=== PATIENT | male | born 1945 | race Two or more races ===

== ENCOUNTER 2020-10-02 07:31 | Outpatient (REF) | payer OTHER, SELFPAY | END 2020-10-02 07:32 | disposition home or self-care (01) | LOC: HO.LAB 07:31 | PROVIDERS: Visit Provider Internal Medicine | DX: Z20.822 Contact with and (suspected) exposure to COVID-19 (principal) | CPT/HCPCS: 36415; C9803; U0003 ==

== ENCOUNTER 2024-04-15 15:40 | Outpatient (AMB) | payer OTHER, SELFPAY ==
--- NOTE | 2024-04-15 15:45 | HO.NEPHOV ---
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 He has history of ischemic stroke, pre diabetes and CKD stage 3. He has expressive aphasia post CVA. He has history of prostate cancer. He denies having coronary artery disease, congestive heart failure, carotid stenosis, renal artery stenosis or PND. He has no history of hypokalemia, uncontrolled thyroid disorders, hypercalcemia or obstructive sleep apnea. He was accompanied by his friend Stella. He was prescribed labetalol in the past and then later to carvedilol which is top due to dizziness and drowsiness. Currently is on amlodipine 10 mg along with lisinopril 40 mg and spironolactone 25 mg. He does not have any chest pain, shortness of breath, proximal nocturnal dyspnea, orthopnea, pedal edema, orthostatic symptoms, hematuria, flank pain, sinusitis, palpitation, syncope, urinary symptoms. He denies taking excessive sodium in the diet as well as nonsteroidal anti-inflammatories. He maintains good hydration. His recent serum creatinine has been 1.48 but had been 1.6 in the past. [facility] Medical History (Updated 04/15/24 @ 15:56 by Richard Vila MD) Prostate cancer Pre-diabetes Expressive aphasia Erectile dysfunction Chronic renal failure BPH (benign prostatic hyperplasia) Essential (primary) hypertension Acute ischemic stroke Family History Son Stroke Son Hypertension Social History (Updated 04/15/24 @ 15:52 by Susana Ingram MA) Alcohol intake: former Patient Tobacco Use Status: Never used Tobacco Review of Systems Const All systems reviewed & are unremarkable except as noted in HPI and below Physical Exam Vital Signs: Last Vital Signs Pulse 74 04/15/24 15:49 BP 122/82 04/15/24 15:49 Pulse Ox 95 04/15/24 15:49 Oxygen Delivery Method Room Air 04/15/24 15:49 BMI result Body Mass Index 25.4 Const General: comfortable and no acute distress Orientation/consciousness: patient oriented x3 HEENT Head: Yes normocephalic Mouth: Normal oral and palatal mucosa present Eyes EOM: EOMs intact bilaterally Neck Neck: Yes supple Resp Auscultation: clear to auscultation bilaterally Cardio Jugular venous distension: no JVD Rate: regular rate GI Palpation (GI): Soft to palpation Auscultation: normal bowel sounds General: Yes no CVA tenderness Back/Spine/Pelvis Back: no CVA tenderness Skin General skin exam: no rashes or lesions noted Neuro General: patient oriented x3 and moves all extremities Extrem General: Yes no pedal edema Results Reviewed Nephrology Results: No Data to Display Assessment & Plan Assessment & Plan (1) CKD stage 3a, GFR 45-59 ml/min: Code(s): N18.31 - Chronic kidney disease, stage 3a Category: Medical (2) Hypertension: Code(s): I10 - Essential (primary) hypertension Category: Medical Qualifiers: Hypertension type: renovascular hypertension Qualified Code(s): I15.0 - Renovascular hypertension Plan 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 I ordered 24 hour ambulatory blood pressure monitor as well as Doppler of his renal arteries along with further workup. His renal functions have been currently stable. He is on CHERYL-inhibitor and spironolactone. His urine output is good. He should avoid nonsteroidal anti-inflammatories and minimize sodium in the diet. He should maintain good hydration. If the 24 hour blood pressure monitor shows him to have uncontrolled hypertension I intend to switch his amlodipine to nifedipine 60 mg daily. He could continue his current medications for now. He is going to follow-up with me in a few weeks with all the data for continued care. Time spent retrieving all [facility] records, patient encounter and documentation 62 minutes. Further management is pending evolving data. Orders: Orders US renal BI Today I15.0 - Renovascular hypertension US renal doppler Today I15.0 - Renovascular hypertension Aldosterone Today I15.0 - Renovascular hypertension, N18.31 - Chronic kidney disease, stage 3a Metanephrines, Plasma Today I15.0 - Renovascular hypertension, N18.31 - Chronic kidney disease, stage 3a Vitamin D 25-OH Total Today I15.0 - Renovascular hypertension, N18.31 - Chronic kidney disease, stage 3a Creatinine Today I15.0 - Renovascular hypertension, N18.31 - Chronic kidney disease, stage 3a Calcium Today I15.0 - Renovascular hypertension, N18.31 - Chronic kidney disease, stage 3a Immunofixation Pnl, Serum Today I15.0 - Renovascular hypertension, N18.31 - Chronic kidney disease, stage 3a AMB 24 HR B/P Monitor PLACEMENT Today I15.0 - Renovascular hypertension Aldost/Renin Today I15.0 - Renovascular hypertension, N18.31 - Chronic kidney disease, stage 3a Renin Today I15.0 - Renovascular hypertension, N18.31 - Chronic kidney disease, stage 3a Cortisol Random Today I15.0 - Renovascular hypertension, N18.31 - Chronic kidney disease, stage 3a TSH reflex Free T4 Today I15.0 - Renovascular hypertension, N18.31 - Chronic kidney disease, stage 3a Parathyroid Hormone Intact Today I15.0 - Renovascular hypertension, N18.31 - Chronic kidney disease, stage 3a Blood Urea Nitrogen Today I15.0 - Renovascular hypertension, N18.31 - Chronic kidney disease, stage 3a Electrolytes Today I15.0 - Renovascular hypertension, N18.31 - Chronic kidney disease, stage 3a Protein Creatinine Ratio, Ur Today I15.0 - Renovascular hypertension, N18.31 - Chronic kidney disease, stage 3a Coding Level of Care Code New Pt Level 5 (31337) Diagnoses CKD stage 3a, GFR 45-59 ml/min N18.31 Renovascular hypertension I15.0 Hypertension type: renovascular hypertension
[2024-04-15 15:49] VITALS: BP 122/82; PULSE 74; O2SAT 95; BMI 25.4
== END 2024-04-15 16:19 | disposition home or self-care (01) ==
PROVIDERS: Visit Provider Internal Medicine Nephrology
DX: N18.31 Chronic kidney disease, stage 3a (principal); I15.0 Renovascular hypertension; I69.320 Aphasia following cerebral infarction
CPT/HCPCS: 99205

== ENCOUNTER → 2024-04-15 15:40 | Outpatient (BNVA) | payer OTHER, SELFPAY | PROVIDERS: Visit Provider Internal Medicine Nephrology | DX: I15.0 Renovascular hypertension (principal); N18.31 Chronic kidney disease, stage 3a | CPT/HCPCS: 99202 ==

== ENCOUNTER 2024-05-13 10:27 | Outpatient (REF) | payer OTHER, SELFPAY ==
[2024-05-13 12:13] LABS: Parathyroid Hormone Intact 109.3 pg/mL (8.7-77.1)
[2024-05-13 12:22] LABS: Anion Gap 11 (12-20); Blood Urea Nitrogen 27 mg/dL (9-16); Calcium 9.4 mg/dL (8.4-10.2); Carbon Dioxide 27 mmol/L (22-29); Chloride 107 mmol/L (96-108); Estimated Glomerular Filt Rate 40; Potassium 4.4 mmol/L (3.3-5.1); Sodium 141 mmol/L (135-145)
[2024-05-13 12:23] LABS: Creatinine Urine 120.92 mg/dL; Protein/Creatinine Ratio, Ur 0.15 (<0.2); Total Protein Urine Random 18 mg/dL (<12)
[2024-05-13 12:24] LABS: TSH reflex Free T4 0.43 uIU/mL (0.32-4.0); Vitamin D 25-OH Total 47.6 ng/mL (>30)
[2024-05-13 12:26] LABS: Cortisol Random 7.1 ug/dL
[2024-05-19 17:03] LABS: Renin 2.05 ng/mL/h (0.25-5.82)
[2024-05-20 21:48] LABS: IgA 133 mg/dL (70-320); IgG 1561 mg/dL (600-1540); IgM 43 mg/dL (50-300)
[2024-05-21 13:44] LABS: Metanephrine, Free 57 pg/mL (<=57); Normetanephrines, Free 87 pg/mL (<=148); Total Metanephrine, Free 144 pg/mL (<=205)
[2024-05-22 12:44] LABS: Aldosterone/Renin Ratio 5.1 Ratio (0.9-28.9); Plasma Renin Activity 2.34 ng/mL/h (0.25-5.82)
== END 2024-05-13 10:28 | disposition home or self-care (01) ==
LOC: HO.LAB 10:27
PROVIDERS: Visit Provider Internal Medicine Nephrology
DX: I15.0 Renovascular hypertension (principal); N18.31 Chronic kidney disease, stage 3a
CPT/HCPCS: 36415; 80051; 82088; 82306; 82310; 82533; 82565; 82570; 82784; 83835; 83970; 84156; 84244; 84443; 84520; 86334

== ENCOUNTER → 2024-05-19 10:25 | Outpatient (BNVA) | payer OTHER, SELFPAY | PROVIDERS: Visit Provider Internal Medicine Nephrology ==

== ENCOUNTER 2024-05-20 10:18 | Outpatient (AMB) | payer OTHER, SELFPAY ==
--- NOTE | 2024-05-20 10:46 | HO.NEPHOV ---
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 He has history of ischemic stroke, pre diabetes and CKD stage 3. He has expressive aphasia post CVA. He has history of prostate cancer. He denies having coronary artery disease, congestive heart failure, carotid stenosis, renal artery stenosis or PND. He has no history of hypokalemia, uncontrolled thyroid disorders, hypercalcemia or obstructive sleep apnea. He was accompanied by his friend Stella. He was prescribed labetalol in the past and then later to carvedilol which was stopped due to dizziness and drowsiness. Currently is on amlodipine 10 mg along with lisinopril 40 mg and spironolactone 25 mg. He does not have any chest pain, shortness of breath, proximal nocturnal dyspnea, orthopnea, pedal edema, orthostatic symptoms, hematuria, flank pain, sinusitis, palpitation, syncope, urinary symptoms. He denies taking excessive sodium in the diet as well as nonsteroidal anti-inflammatories. He maintains good hydration. His recent serum creatinine has been 1.48 but had been 1.6 in the past. He had a 24 hour BPM which showed 24 hour average of 134/85 mm of Hg. His day time average was 134/86 mm of Hg and night time average of 133/85 mm of Hg. [facility] Medical History (Updated 04/15/24 @ 15:56 by Richard Vila MD) Prostate cancer Pre-diabetes Expressive aphasia Erectile dysfunction Chronic renal failure BPH (benign prostatic hyperplasia) Essential (primary) hypertension Acute ischemic stroke Family History Son Stroke Son Hypertension Social History Alcohol intake: former Patient Tobacco Use Status: Never used Tobacco Review of Systems Const All systems reviewed & are unremarkable except as noted in HPI and below Physical Exam Vital Signs: Last Vital Signs Pulse 66 05/20/24 10:48 BP 138/80 05/20/24 10:48 Pulse Ox 97 05/20/24 10:48 Oxygen Delivery Method Room Air 05/20/24 10:48 BMI result Body Mass Index 25.5 Const General: comfortable and no acute distress Orientation/consciousness: patient oriented x3 HEENT Head: Yes normocephalic Mouth: Normal oral and palatal mucosa present Eyes EOM: EOMs intact bilaterally Neck Neck: Yes supple Resp Auscultation: clear to auscultation bilaterally Cardio Jugular venous distension: no JVD Rate: regular rate GI Palpation (GI): Soft to palpation Auscultation: normal bowel sounds General: Yes no CVA tenderness Back/Spine/Pelvis Back: no CVA tenderness Skin General skin exam: no rashes or lesions noted Neuro General: patient oriented x3 and moves all extremities Extrem General: Yes no pedal edema Results Reviewed Nephrology Results: Sodium 141 mmol/L (135-145) 05/13/24 Potassium 4.4 mmol/L (3.3-5.1) 05/13/24 Chloride 107 mmol/L (96-108) 05/13/24 Carbon Dioxide 27 mmol/L (22-29) 05/13/24 BUN 27 mg/dL (9-16) H 05/13/24 Creatinine 1.69 mg/dL (0.5-1.4) H 05/13/24 Calcium 9.4 mg/dL (8.4-10.2) 05/13/24 PTH Intact 109.3 pg/mL (8.7-77.1) H 05/13/24 Urine Creatinine 120.92 mg/dL 05/13/24 Protein/Creatinin Ratio 0.15 (<0.2) 05/13/24 Assessment & Plan Assessment & Plan (1) CKD stage 3a, GFR 45-59 ml/min: Code(s): N18.31 - Chronic kidney disease, stage 3a Category: Medical (2) Hypertension: Code(s): I10 - Essential (primary) hypertension Category: Medical Qualifiers: Hypertension type: renovascular hypertension Qualified Code(s): I15.0 - Renovascular hypertension Plan 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 24 hour ambulatory blood pressure showed He had a 24 hour BPM which showed 24 hour average of 134/85 mm of Hg. His day time average was 134/86 mm of Hg and night time average of 133/85 mm of Hg. HIs Doppler of his renal arteries are going to be done in a week. His renal functions have been currently stable. He is on CHERYL-inhibitor and spironolactone. His urine output is good. He should avoid nonsteroidal anti-inflammatories and minimize sodium in the diet. He should maintain good hydration. I discontinued his amlodipine and started him on nifedipine 30 mg daily. He could continue rest of his current medications for now. He is going to follow-up with me in a few weeks with all the data for continued care.Further management is pending evolving data Medications: New nifedipine ER 30 mg PO DAILY 30 tabs 6RF Coding Level of Care Code Est Pt Level 4 (81132) Diagnoses CKD stage 3a, GFR 45-59 ml/min N18.31 Renovascular hypertension I15.0 Hypertension type: renovascular hypertension
[2024-05-20 10:48] VITALS: BP 138/80; PULSE 66; O2SAT 97; BMI 25.5
== END 2024-05-20 11:12 | disposition home or self-care (01) ==
PROVIDERS: Visit Provider Internal Medicine Nephrology
DX: N18.31 Chronic kidney disease, stage 3a (principal); I15.0 Renovascular hypertension; I69.320 Aphasia following cerebral infarction; R03.0 Elevated blood-pressure reading, without diagnosis of hypertension
CPT/HCPCS: 93790; 99214

== ENCOUNTER → 2024-05-20 10:18 | Outpatient (BNVA) | payer OTHER, SELFPAY | PROVIDERS: Visit Provider Internal Medicine Nephrology | DX: I15.0 Renovascular hypertension (principal); N18.31 Chronic kidney disease, stage 3a; Z86.73 Personal history of transient ischemic attack (TIA), and cerebral infarction without residual deficits | CPT/HCPCS: 99212 ==

== ENCOUNTER 2024-05-24 08:18 | Outpatient (REF) | payer OTHER, SELFPAY ==
--- NOTE | ~2024-05-24 | US_ITS ---
EXAMINATION: RENAL ARTERY DOPPLER ULTRASOUND CLINICAL INFORMATION: Hypertension COMPARISON: None TECHNIQUE: Renal ultrasound. Doppler ultrasound (spectral analysis and color Doppler) of the renal arteries and aorta were performed. FINDINGS: The right kidney measures 9.1 x 5.0 x 4.2 cm in sagittal, AP and transverse dimensions. The left kidney measures 9.9 x 4.7 x 3.8 cm in sagittal, AP and transverse dimensions. The kidneys show no solid masses or hydronephrosis. The corticomedullary differentiation is normal. There is an anechoic simple cyst in the upper pole of the right kidney measuring 1.1 x 1.3 x 1.1 cm. There are 3 anechoic simple cyst within the left kidney, largest within the mid pole measuring 2.0 x 1.9 x 1.8 cm. No follow-up indicated. Punctate 2 mm echogenic stone in the upper pole collecting system of the left kidney RENAL ARTERY VELOCITIES: Right: Proximally: 132 cm/s. Mid: 63.6 cm/s. Distal: 29.6 cm/s. Left: Proximally: 69.7 cm/s. Mid: 99.5 cm/s. Distally: 79.1 cm/s. SEGMENTAL RESISTIVE INDICES: Right: Upper: 0.7 Mid: 0.66 Lower: 0.66 Left: Upper: 0.75 Mid: 0.61 Lower: 0.77 Mid aortic velocity: 66.6 cm/s. Renal Aortic Ratio: Right: 1.98 Left: 1.49 US/US renal doppler IMPRESSION: 1. Bilateral renal cysts. Left nephrolithiasis 2. There is no evidence of renal artery stenosis. Criteria: NORMAL: Renal artery peak systolic velocities < 180 cm/s. Renal aortic ratio < 3.5 Normal renal size. < 60% STENOSIS: Renal artery peak systolic velocities > 180 cm/s. Renal aortic ratio < 3.5 Renal size <2 cm difference between sides. > 60% STENOSIS Renal artery peak systolic velocities > 180 cm/s. Renal aortic ratio > 3.5 Renal size >2 cm difference between sides. Aortic PSV > 140 cm/s with normal renal artery PSV made over estimate severity. Aortic PSV > 100 cm/s with normal renal artery PSV may underestimate severity. Electronically signed by: Osei Franco MD 05/27/2024 09:42 AM EDT RP
== END 2024-05-24 08:19 | disposition home or self-care (01) ==
LOC: HO.US 08:18
PROVIDERS: Visit Provider Internal Medicine Nephrology
DX: I15.0 Renovascular hypertension (principal)
CPT/HCPCS: 76775; 93975

== ENCOUNTER 2024-06-22 10:09 | Outpatient (AMB) | payer OTHER, SELFPAY ==
--- NOTE | 2024-06-22 10:54 | HO.NEPHOV_ITS ---
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 He has history of ischemic stroke, pre diabetes and CKD stage 3. He has expressive aphasia post CVA. He has history of prostate cancer. He denies having coronary artery disease, congestive heart failure, carotid stenosis, renal artery stenosis or PND. He has no history of hypokalemia, uncontrolled thyroid disorders, hypercalcemia or obstructive sleep apnea. He was accompanied by his friend Stella. He was prescribed labetalol in the past and then later to carvedilol which was stopped due to dizziness and drowsiness. Currently is on amlodipine 10 mg along with lisinopril 40 mg and spironolactone 25 mg. He does not have any chest pain, shortness of breath, proximal nocturnal dyspnea, orthopnea, pedal edema, orthostatic symptoms, hematuria, flank pain, sinusitis, palpitation, syncope, urinary symptoms. He denies taking excessive sodium in the diet as well as nonsteroidal anti-inflammatories. He maintains good hydration. His recent serum creatinine has been 1.48 but had been 1.6 in the past. He had a 24 hour BPM which showed 24 hour average of 134/85 mm of Hg. His day time average was 134/86 mm of Hg and night time average of 133/85 mm of Hg [facility] Medical History (Updated 06/22/24 @ 11:10 by Richard Vila MD) Prostate cancer Pre-diabetes Expressive aphasia Erectile dysfunction Chronic renal failure BPH (benign prostatic hyperplasia) Essential (primary) hypertension Acute ischemic stroke Family History Son Stroke Son Hypertension Social History Alcohol intake: former Patient Tobacco Use Status: Never used Tobacco Review of Systems Const All systems reviewed & are unremarkable except as noted in HPI and below Physical Exam Vital Signs: Last Vital Signs Pulse 66 06/22/24 10:56 BP 132/80 06/22/24 10:56 Pulse Ox 97 06/22/24 10:56 Oxygen Delivery Method Room Air 06/22/24 10:56 BMI result Body Mass Index 25.0 Const General: comfortable and no acute distress Orientation/consciousness: patient oriented x3 HEENT Head: Yes normocephalic Mouth: Normal oral and palatal mucosa present Eyes EOM: EOMs intact bilaterally Neck Neck: Yes supple Resp Auscultation: clear to auscultation bilaterally Cardio Jugular venous distension: no JVD Rate: regular rate GI Palpation (GI): Soft to palpation Auscultation: normal bowel sounds General: Yes no CVA tenderness Back/Spine/Pelvis Back: no CVA tenderness Skin General skin exam: no rashes or lesions noted Neuro General: patient oriented x3 and moves all extremities Extrem General: Yes no pedal edema Results Reviewed Nephrology Results: Sodium 141 mmol/L (135-145) 05/13/24 Potassium 4.4 mmol/L (3.3-5.1) 05/13/24 Chloride 107 mmol/L (96-108) 05/13/24 Carbon Dioxide 27 mmol/L (22-29) 05/13/24 BUN 27 mg/dL (9-16) H 05/13/24 Creatinine 1.69 mg/dL (0.5-1.4) H 05/13/24 Calcium 9.4 mg/dL (8.4-10.2) 05/13/24 PTH Intact 109.3 pg/mL (8.7-77.1) H 05/13/24 Urine Creatinine 120.92 mg/dL 05/13/24 Protein/Creatinin Ratio 0.15 (<0.2) 05/13/24 Renal US 05/24/24 Assessment & Plan Assessment & Plan (1) CKD stage 3a, GFR 45-59 ml/min: Code(s): N18.31 - Chronic kidney disease, stage 3a Category: Medical (2) Hypertension: Code(s): I10 - Essential (primary) hypertension Category: Medical Qualifiers: Hypertension type: renovascular hypertension Qualified Code(s): I15.0 - Renovascular hypertension (3) Renal calculi: Code(s): N20.0 - Calculus of kidney Category: Medical (4) Renal cyst: Code(s): N28.1 - Cyst of kidney, acquired Category: Medical Plan 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 24 hour ambulatory blood pressure showed BPM which showed 24 hour average of 134/85 mm of Hg. His day time average was 134/86 mm of Hg and night time average of 133/85 mm of Hg. HIs Doppler of his renal arteries are going to be done in a week. His renal functions have been currently stable. He is on CHERYL- inhibitor and spironolactone. His urine output is good. He should avoid nonst eroidal anti-inflammatories and minimize sodium in the diet. He should maintain good hydration. His renal USS and Doppler was reviewed. He could continue rest of his current medications for now. F/U given Orders: Orders Blood Urea Nitrogen 6 Months I15.0 - Renovascular hypertension, N18.31 - Chronic kidney disease, stage 3a, N20.0 - Calculus of kidney, N28.1 - Cyst of kidney, acquired Electrolytes 6 Months I15.0 - Renovascular hypertension, N18.31 - Chronic k idney disease, stage 3a, N20.0 - Calculus of kidney, N28.1 - Cyst of kidney, acquired Creatinine 6 Months I15.0 - Renovascular hypertension, N18.31 - Chronic kidney disease, stage 3a, N20.0 - Calculus of kidney, N28.1 - Cyst of kidney, acquired Coding Level of Care Code Est Pt Level 4 (00091) Diagnoses CKD stage 3a, GFR 45-59 ml/min N18.31 Renovascular hypertension I15.0 Hypertension type: renovascular hypertension Renal calculi N20.0 Renal cyst N28.1
[2024-06-22 10:56] VITALS: BP 132/80; PULSE 66; O2SAT 97; BMI 25.0
== END 2024-06-22 11:17 | disposition home or self-care (01) ==
PROVIDERS: Visit Provider Internal Medicine Nephrology
DX: N18.31 Chronic kidney disease, stage 3a (principal); I15.0 Renovascular hypertension; N20.0 Calculus of kidney; N28.1 Cyst of kidney, acquired
CPT/HCPCS: 99214

== ENCOUNTER → 2024-06-22 10:09 | Outpatient (BNVA) | payer OTHER, SELFPAY | PROVIDERS: Visit Provider Internal Medicine Nephrology | DX: N18.31 Chronic kidney disease, stage 3a (principal); N20.0 Calculus of kidney; N28.1 Cyst of kidney, acquired; I15.0 Renovascular hypertension | CPT/HCPCS: 99212 ==

== ENCOUNTER 2024-12-21 10:28 | Outpatient (AMB) | payer OTHER, SELFPAY ==
--- NOTE | 2024-12-21 10:54 | HO.NEPHOV_ITS ---
Vital Signs 12/21/24 10:58 Height 5 ft 9 in Weight 174 lb 4 oz BMI 25.7 BP 150/90 H Blood Pressure Location Lt brachial Position Sitting Pulse 63 Pulse Source Pulse Oximeter Pulse Oximetry (%) 94 Oxygen Delivery Method Room Air Intake Visit Reasons: 6 mo - Follow up-Conf Mill Dresser Required: No Accompanied by: Other Relationship Allergies No Known Allergies Allergy (Verified 12/21/24 10:57) HPI Comments Details: Ignacio was seen in follow up for labile hypertension and chronic kidney disease. He has history of ischemic stroke, pre diabetes and CKD stage 3. He has expressive aphasia post CVA. He has history of prostate cancer. He denies having coronary artery disease, congestive heart failure, carotid stenosis, renal artery stenosis or PND. He has no history of hypokalemia, uncontrolled thyroid disorders, hypercalcemia or obstructive sleep apnea. He was accompanied by his friend Stella. He was prescribed labetalol in the past and then later to carvedilol which was stopped due to dizziness and drowsiness. Currently is on amlodipine 10 mg along with lisinopril 40 mg and spironolactone 25 mg. He does not have any chest pain, shortness of breath, proximal nocturnal dyspnea, orthopnea, pedal edema, orthostatic symptoms, hematuria, flank pain, sinusitis, palpitation, syncope, urinary symptoms. He denies taking excessive sodium in the diet as well as nonsteroidal anti-inflammatories. He maintains good hydration. His recent serum creatinine has been 1.48 but had been 1.6 in the past. He had a 24 hour BPM which showed 24 hour average of 134/85 mm of Hg. His day time average was 134/86 mm of Hg and night time average of 133/85 mm of Hg. He has not been taking Nifedipine. [facility] Medical History (Updated 06/22/24 @ 11:10 by Richard Vila MD) Prostate cancer Pre-diabetes Expressive aphasia Erectile dysfunction Chronic renal failure BPH (benign prostatic hyperplasia) Essential (primary) hypertension Acute ischemic stroke Family History Son Stroke Son Hypertension Social History Alcohol intake: former Patient Tobacco Use Status: Never used Tobacco Review of Systems Const All systems reviewed & are unremarkable except as noted in HPI and below Physical Exam Vital Signs: Last Vital Signs Pulse 63 12/21/24 10:58 BP 150/90 H 12/21/24 10:58 Pulse Ox 94 12/21/24 10:58 Oxygen Delivery Method Room Air 12/21/24 10:58 BMI result Body Mass Index 25.7 Const General: comfortable and no acute distress Orientation/consciousness: patient oriented x3 HEENT Head: Yes normocephalic Mouth: Normal oral and palatal mucosa present Eyes EOM: EOMs intact bilaterally Neck Neck: Yes supple Resp Auscultation: clear to auscultation bilaterally Cardio Jugular venous distension: no JVD Rate: regular rate GI Palpation (GI): Soft to palpation Auscultation: normal bowel sounds General: Yes no CVA tenderness Back/Spine/Pelvis Back: no CVA tenderness Skin General skin exam: no rashes or lesions noted Neuro General: patient oriented x3 and moves all extremities Extrem General: Yes no pedal edema Results Reviewed Nephrology Results: Sodium 141 mmol/L (135-145) 05/13/24 Potassium 4.4 mmol/L (3.3-5.1) 05/13/24 Chloride 107 mmol/L (96-108) 05/13/24 Carbon Dioxide 27 mmol/L (22-29) 05/13/24 BUN 27 mg/dL (9-16) H 05/13/24 Creatinine 1.69 mg/dL (0.5-1.4) H 05/13/24 Calcium 9.4 mg/dL (8.4-10.2) 05/13/24 PTH Intact 109.3 pg/mL (8.7-77.1) H 05/13/24 Urine Creatinine 120.92 mg/dL 05/13/24 Protein/Creatinin Ratio 0.15 (<0.2) 05/13/24 Renal US 05/24/24 Assessment & Plan Assessment & Plan (1) Renal cyst: Code(s): N28.1 - Cyst of kidney, acquired Category: Medical (2) Renal calculi: Code(s): N20.0 - Calculus of kidney Category: Medical (3) Hypertension: Code(s): I10 - Essential (primary) hypertension Category: Medical Qualifiers: Hypertension type: renovascular hypertension Qualified Code(s): I15.0 - Renovascular hypertension (4) CKD stage 3a, GFR 45-59 ml/min: Code(s): N18.31 - Chronic kidney disease, stage 3a Category: Medical Plan 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 24 hour ambulatory blood pressure showed BPM which showed 24 hour average of 134/85 mm of Hg. His day time average was 134/86 mm of Hg and night time average of 133/85 mm of Hg. His Doppler of his renal arteries did not show any JORGE L. He has B/L renal cysts His renal functions had currently stable. He is on CHERYL-inhibitor and spironolactone. He is not taking Nifedipine. So I started him on Amlodipine 10 mg daily. His urine output is good. He should avoid nonsteroidal anti-inflammatories and minimize sodium in the diet. He should maintain good hydration.He could continue rest of his current medications for now. F/U given Medications: New amlodipine 10 mg PO DAILY 30 tabs 3RF Discontinued nifedipine ER Discontinued Reason: Doctor's Order 30 mg PO DAILY 30 tabs 6RF Coding Level of Care Code Est Pt Level 4 (91744) Diagnoses Renal cyst N28.1 Renal calculi N20.0 Renovascular hypertension I15.0 Hypertension type: renovascular hypertension CKD stage 3a, GFR 45-59 ml/min N18.31
[2024-12-21 10:58] VITALS: BP 150/90; PULSE 63; O2SAT 94; BMI 25.7
--- OUTSIDE RECORDS SUMMARY | 2024-12-21 12:32 | XMS_ITS | Encounter Summary ---
Author Organization [facility] Address [address] [place] [address] Phone Care Team Providers Care Inside Trucker Name Role Phone Tae Ward MD Primary Care Provider Encounter Details Date Type Department Care Team (Late st Contact Info) Description 03/14/2022 Documentation Only [facility] [place], [address] [place] [address] [place], [place] [address] [place] [address] Social History Tobacco Use Types Packs/Day Years Used Date Smoking Tobacco: Never Alcohol Use Standard Drinks/Week Comments No 0 (1 standard drink = 0.6 oz pur e alcohol) Sex and Gender Information Value Date Recorded Sex Assigned at Not on file Legal Sex Male 5:03 PM EST Gender Identity Not on file Sexual Orientation Not on file documented as of this encounter Plan of Treatment Not on file documented as of this encounter Visit Diagnoses Not on filedocumented in this encounter Care Teams Inside Trucker Relationship Specialty Start Date End Date Tae Ward MD [facility] [address] [place], [place] PCP - General Internal Medicine 03/14/22 documented as of this encounter
--- OUTSIDE RECORDS SUMMARY | 2024-12-21 12:32 | XMS_ITS | Data Portability ---
Author Organization [employer] Address [address] [place] [address] Care Team Providers Care Energy Management Specialist Name Role Phone [facility] Referring Provider [phone] Assessment Encounter Date Assessment Date Assessment LastModified by Organization Details LastModified Time 07/21/2023 07/21/2023 As noted, we were called to see this patient regarding concerns of tachyarrhythmia . Evaluation in the field was performed by my childhood teacher colleague, as noted above, I provided real-time direction and supervision for this visit. The evaluation revealed the patient had stable vitals, no symptoms, and a reassuring exam. EKG showed sinus rhythm with some PVCs. Impression: normal sinus rhythm Plan: follow up with PCP Disposition: We discussed the diagnostic uncertainty of home visits and the risk associated with this. In this case, the patient and I felt this to be an acceptable and reasonable amount of risk given the benefit of avoiding an ED visit. We discussed the need to seek care urgently/emerge ntly in the setting of any new or worsening serious symptoms, particularly palpitations, dizziness, chest pain lswamy Not available 07/21/2023 17:54:51 Plan of Treatment Reminders Order Date Submit Date Provider Last Modified By Organization Details Last Modified Time Details Appointments None record ed. Lab None record ed. Referral None record ed. Procedures None record ed. Surgeries None record ed. Imaging None record ed. Medication Orders None record ed. Patient TargetsNo targets recorded. Patient InstructionsNo instructions recorded. Reason for Referral None Reported. Medical Equipment None Reported. Medications Name Sig Start Date Stop Date Status Note LastModified by Organization Details LastModified Time atorvastatin 80 mg tablet TAKE 1 TABLET BY MOUTH DAILY active Not Available Not Available No t Available lisinopril 20 mg tablet TAKE 1 TABLET BY MOUTH DAILY active Not Available Not Available No t Available amlodipine 10 mg tablet TAKE 1 TABLET BY MOUTH DAILY active Not Available Not Available No t Available loratadine 10 mg tablet TAKE 1 TABLET BY MOUTH DAILY active Not Available Not Available No t Available ezetimibe 10 mg tablet TAKE 1 TABLET BY MOUTH DAILY active Not Available Not Available No t Available Vitals Date Recorded Respiratory rate Body temperature Heart rate Oxygen saturation Oxygen saturation in Arterial blood by Pulse oximetry Systolic blood pressure Diastolic blood pressure Provider Name and Address Organization Details Last Updated DateTime 3 16 /min 97.6 [degF] 72 /min 98 % 98 % 155 mm[Hg] 89 mm[Hg] Not Available [facility] - production 3 17:40:01 Social History None recorded. Functional Status None recorded. Mental Status None recorded. Family History Nothing Reported. Medical History No medical history recorded. Past Encounters Encounter ID Performer Location Encounter Start Date Encounter Closed Date Diagnosis/Indication Diagnosis SNOMED-CT Code Diagnosis ICD10 Code Diagnosis Note [id number] MELISSA PAL MD [facility] - [facility] [address] [place] [phone] 07/21/2023 17:39:46 07/22/2023 11:19:25 Palpitations 60465809 R00.2 Health Concerns Section Related Observation LastModified by Organization Detai ls LastModified Time None Recorded Concern Status LastModified by Organization Details LastModified Time None Recorded Advance Directives Directive None Recorded Payers Encounter Date Sequence Insurance Name Policy Number Policy Barboza Covered Member ID Barboza Member ID Guarantor Name 07/21/2023 1 [facility] - DOS ON OR AFTER 2022 - DUAL ELIGIBLE - SNF OPTIONS AND ONE CARE (MEDICARE REPLACEMENT/ADV ANTAGE - HMO) Ignacio Dixon [id number] Ignaico Dixon Notes Date Note Type Note Provider Name and Address Organization Details Recorded Time 07/21/2023 text/html HPI: Member seen for a nurse assessment. Member found to have an irregular heart rate ranging from 62-133, denies any other cardiac symptoms. Denies chest pain, SOB, dizziness, or palpitations. The member's BP was 138/70, temp 97.3, RR 18, and O2 sat of 98%. The member has no known cardiac arrhythmias. The member has past medical hx of a CVA, prediabetes, and CKD stage 3. The member reports having the Flu last week but unable to confirm the diagnosis. The member refused to be seen for treatment this afternoon but agreed to a visit after this RN spoke with the PCP office who felt the member should be evaluated by the [facility] team. The member has a PCP f/u visit in the morning at 8:20 am for further evaluation. .................. .................. .................. .................. .................. .................. .................. ............... CRC Nursing Assessment: Comments: CRC RN did not require any additional information to process this visit. .................. .................. .................. .................. .................. .................. .................. ............... Scientific Software Developer Note From Jay Brdiges: Visit initiated by VNA who reported irregular HR 60-130. Pt denies any complaints including CP, SOB, LAURENT, f/n/v/d. Pt is alert, NAD. VSS. Apical pulse is regular, 72 bpm, no murmurs. Afebrile. Neuro exam c/w baseline. Lungs CTA. Benign ABD exam. No HERMINIA. ECG: sinus with occasional PVC? s and PAC? s. Pt instructed to keep PCP appointment in the morning and to seek emergent medical care for new or worsening sx, which are reviewed with him. .................. .................. .................. .................. .................. .................. .................. ............... Disposition: Fulfilled MELISSA PAL MD [address] [facility],[address], [place], [address], VICK MINA 07/21/2023 17:55:17
--- OUTSIDE RECORDS SUMMARY | 2024-12-21 12:32 | XMS_ITS ---
Author Organization [facility] Address [address] [place] [address] Care Team Providers Care Pattern Wheel Maker Name Role Phone Lionel Lynn PA-C Primary Care Provider Unavail able Sonny Fay Unavailable [phone] REASON FOR VISIT PT left Encounters Encounter Location Date [facility] [address] [facility]/29/[facility] Sonny Fay Plan Of Treatment No Information Progress Notes * Ignacio DIXONDOB:1945 ( 79 yo M)Acc No.[id number]:09/29/2024 Patient:?Ignacio DIXON :1945???Age:78 Y???Sex:Male Address:[address] [place] [address], [facility] [address], [place], [address] * * Date:?
--- OUTSIDE RECORDS SUMMARY | 2024-12-21 12:32 | XMS_ITS | Encounter Summary ---
Author Organization [facility] Address [address] [place] [address] Phone Care Team Providers Care Molder Trimmer Name Role Phone Tae Ward MD Primary Care Provider [phone] Encounter Details Date Type Department Care Team (Late st Contact Info) Description 03/14/2022 Documentation Only [facility] [place], [address] [place] [address] [place], [place] [address] [place] [address] Social History Tobacco Use Types [...] on filedocumented in this encounter Care Teams Molder Trimmer Relationship Specialty Start Date End Date Tae Ward MD [facility] [address] [place], [place] PCP - General Internal Medicine 03/14/22 documented as of this encounter
--- OUTSIDE RECORDS SUMMARY | 2024-12-21 12:32 | XMS_ITS | Encounter Summary ---
Author Organization [facility] Address [address] [place] [address] Phone Care Team Providers Care Carburetor Specialist Name Role Phone Tae Ward MD Primary Care Provider [phone] Encounter Details Date Type Department Care Team (Late st Contact Info) Description 03/14/2022 Documentation Only [facility] [place], [address] [place] [address] [place], [place] [address] [place] [address] Social History Tobacco Use Types [...] on filedocumented in this encounter Care Teams Carburetor Specialist Relationship Specialty Start Date End Date Tae Ward MD [facility] [address] [place], [place] PCP - General Internal Medicine 03/14/22 documented as of this encounter
--- OUTSIDE RECORDS SUMMARY | 2024-12-21 12:32 | XMS_ITS ---
Author Organization [facility] Address [address] [place] [address] Care Team Providers Care Accounts Receivable Manager Name Role Phone Lionel Lynn PA-C Primary Care Provider Sonny De Leon Unavailable [phone] Encounters Encounter [facility] [address] [facility]/29/[facility] Sonny Fay Plan Of Treatment No Information Progress Notes * WALLACEIgnacio NIEVESDOB:1945 ( 79 yo M)Acc No.[id number]:09/29/2024 Progress Note Patient:?Ignacio WALLACE Provider:Smooth Fay DPM :1945???Age:78 Y???Sex:Male Juan e:09/29/2024 Address:[address] [place] [address], [facility] Pcp:Lionel Lynn PA-C Subjective: * Chief Complaints: * ??? * Medical History:? Objective: * Vitals:? Assessment: Plan: * Treatment: * Images: * The named appointment provid er may or may not be the originator of this progress note, and it is not deemed complete until electronically signed by the appointment provider. Sign off status: Pending * Provider:Smooth Fay DPM Date:?2024 Generated for Eli royce/Jacinto/eTransmitting on:?12/21/2024 12:32 PM EDT
--- OUTSIDE RECORDS SUMMARY | 2024-12-21 12:32 | XMS_ITS | Patient Health Record ---
Author Organization [facility] Address [address] [facility] [place] [address] Care Team Providers Care Addiction Therapist Name Role Phone Lionel Lynn PA-C Primary Care Provider Unavail able Sonny Fay Unavailable [phone] Allergies No Known Allergies Reason For Referral No Information Medications Medication SIG (Take, Route, Frequency, Duration) Notes Start Date End Date Status Ammonium Lactate 12 % 1 application Exte rnally to affected areas of skin to feet except for between the toes Twice a day for 30 days Active Atorvastatin Calcium 80 MG 1 tablet Orally Active Orthopedic Extra Depth Shoes With Custom Heat Molded Multidensity Innersoles 1 Pair shoes with 3 Pair custom heat molded innersoles Wear Daily for 365 days 10/20/2023 Active Lisinopril 40 MG 1 tablet Orally Once a day for 30 day(s) Active Ezetimibe 10 MG 1 tablet Orally Active amLODIPine Besylate 10 MG 1 tablet Orall y Once a day for 30 day(s) Active Social History Tobacco Use: Social History Observation Description Date Details (start date - stop date) Never Smoker NA - NA Tobacco Use/Smoking Question Answer Notes Are you a: nonsmoker Additional Findings: Tobacco Non-User Current no n-smoker Alcohol Screen Question Answer Notes Did you have a drink containing alcohol in the p ast year? No Points 0 Interpretation Negative Tobacco use other than smoking: Question Answer Notes Are you an other tobacco user? No Problems Problem Type SNOMED Code ICD Code Onset Dates Problem Status W/U Status Risk Notes Problem Acquired hammer toe of right foot (7443055317182819 ) Other hammer toe(s) (acquired), right foot (M20.41) Active confirmed Response to treatment, Improvemen t Problem Acquired hammer toe of left foot (2704600952490259 ) Other hammer toe(s) (acquired), left foot (M20.42) Active confirmed Response to treatment, Improvemen t Problem Atherosclerosis of [place] arteries of the extremities (657242744380783) Atherosclerosis of [place] artery of both lower extremities, with unspecified presence of clinical manifestation (I70.203) Active confirmed Vital Signs Height 5ft 9in in 06/30/2024 Weight 169 lbs 06/30/2024 BMI 24.95 kg/m2 06/30/2024 Procedures Procedure Date Ordered Date Performed Result Body Sit e 23434-DCSQSXR NAIL, 6 OR MORE 03/29/2024 N/A 02243-Kasprdcs Plate 03/29/2024 N/A 54773-JCPL SKIN LESIONS, OVER 4 03/29/2024 N/A 39022-IJSJSPA NAIL, 6 OR MORE 06/30/2024 N/A 62540-Icybxcac Plate 06/30/2024 N/A 12189-WEKI SKIN LESIONS, OVER 4 06/30/2024 N/A Encounters Encounter Location Date Provider Diagnosis [address] [address] 03/29/2024 Sonny Fay Atherosclerosis of [place] artery of both lower extremities, with unspecified presence of clinical manifestation I70.203 ; Tinea unguium B35.1 ; Pain in right toe(s) M79.674 ; Pain in left toe(s) M79.675 ; Ingrown nail L60.0 ; Other hammer toe(s) (acquired), right foot M20.41 and Other hammer toe(s) (acquired), left foot M20.[address] [address] 06/30/2024 Sonny Fay Atherosclerosis of [place] artery of both lower extremities, with unspecified presence of clinical manifestation I70.203 ; Tinea unguium B35.1 ; Pain in right toe(s) M79.674 ; Pain in left toe(s) M79.675 ; Ingrown nail L60.0 and Xerosis of skin L85.[address] [address] 09/29/2024 Sonny Fay [facility] [address] [facility] [address] [place] [address] 01/19/2024 Sonny Fay Assessments Encounter Date Diagnosis (ICD Code) Assessment Notes Treatment Notes Treatment Clinical Notes Section Notes 03/29/2024 Tinea unguium (ICD-10 - B35.1) 03/29/2024 Atherosclerosis of [place] artery of both lower extremities, with unspecified presence of clinical manifestation (ICD-10 - I70.203) 06/30/2024 Tinea unguium (ICD-10 - B35.1) 06/30/2024 Atherosclerosis of [place] artery of both lower extremities, with unspecified presence of clinical manifestation (ICD-10 - I70.203) 06/30/2024 Pain in right toe(s) (ICD-10 - M79.674) 03/29/2024 Pain in right toe(s) (ICD-10 - M79.674) 03/29/2024 Pain in left toe(s) (ICD-10 - M79.675) 06/30/2024 Pain in left toe(s) (ICD-10 - M79.675) 06/30/2024 Ingrown nail (ICD-10 - L60.0) 03/29/2024 Ingrown nail (ICD-10 - L60.0) 03/29/2024 Other hammer toe(s) (acquired), right foot (ICD-10 - M20.41) Response to treatment,Impr ovement 06/30/2024 Xerosis of skin (ICD-10 - L85.3) 03/29/2024 Other hammer toe(s) (acquired), left foot (ICD-10 - M20.42) Response to treatment,Impr ovement Plan Of Treatment Pending Test Test Name Order Date 24615-GJTJNIY NAIL, 6 OR MORE 10/20/2023 33404-ZOYMFAD NAIL, 6 OR MORE 03/29/2024 80590-YQHPVAZ NAIL, 6 OR MORE 06/30/2024 58004-Vilpszqp Plate 06/30/2024 90989-Siuchngk Plate 03/29/2024 64077-KLIG SKIN LESIONS, OVER 4 03/29/20 24 10786-BIAH SKIN LESIONS, OVER 4 10/20/19 24 49272-NAHL SKIN LESIONS, OVER 4 06/30/20 24 Insurance Providers Payer Name Payer Address Payer Phone Subscriber Number Group Number Insured Name Patient Relationship to Insured Coverage Start Date Coverage End Date [facility] [employer] Claims [address] [place] [id number] Ignacio Dixon Self - patient is the insured Medical (General) History Medical History History ICD Code Hypertension Stroke CAD Surgical History Surgery Date(Month/Year)
--- OUTSIDE RECORDS SUMMARY | 2024-12-21 12:32 | XMS_ITS | Encounter Summary ---
Author Organization [facility] Address [address] [place] [address] Phone Care Team Providers Care Behavioral Health Technician Name Role Phone Tae Ward MD Primary Care Provider [phone] Encounter Details Date Type Department Care Team (Late st Contact Info) Description 03/14/2022 Documentation Only [facility] [place], [address] [place] [place] [address] [place], [place] [address] [place] [address] Social History Tobacco Use Types [...] on filedocumented in this encounter Care Teams Behavioral Health Technician Relationship Specialty Start Date End Date Tae Ward MD [facility] [address] [place], [place] PCP - General Internal Medicine 03/14/22 documented as of this encounter
--- OUTSIDE RECORDS SUMMARY | 2024-12-21 12:32 | XMS_ITS | Clinical Summary ---
Author Organization [employer] ity Address [address] [place] [address] Care Team Providers Care Sprinkler Worker Name Role Phone Laureen Hare MD Primary Care Provider [phone] Encounters Date Type Department Care Team Description 11/25/2024 Telephone [facility] Radiation Oncology [address] [place] [address] Gia Galvan RN from Last 3 Months Social History Tobacco Use Types Packs/Day Years Used Date Smoking Tobacco: Never Assessed Sex and Gender Information Value Date Recorded Sex Assigned at Not on file Legal Sex Male 10:26 AM EST Gender Identity Not on file Sexual Orientation Not on file Plan of Treatment Health Maintenance Due Date Last Done Comments COVID-19 Vaccine (#1) 11/29/1950 Zoster Vaccines (1 of 2) 1965 RSV Immunization Adult Patients (1 - 1-dose 75+ series) 2021 DTaP,Tdap,and Td Vaccines (2 - Td or Tdap) 12/23/2021 12/24/2011 Cholesterol Screening (Lipid Panel) 08/13/2022 Depression Screening 08/13/2022 Falls Risk Assessment 08/13/2022 Hepatitis C Screening 08/13/2022 Social Influencers of Health Screening 08/13/2022 Hypertension/CHF/CAD Annual BMP Blood Test 08/22/2022 Influenza Vaccine (#1) 2024 0, 09/23/2019, 08/04/2018, Additional history exists Pneumococcal Vaccine: 50+ Years Completed 05/02/2017, 03/05/2017, 12/24/2011 HIB Vaccines Aged Out No longer eligi ble based on patient's age to complete this topic HPV Vaccines Aged Out No longer eligi ble based on patient's age to complete this topic Hepatitis A Vaccines Aged Out No long er eligible based on patient's age to complete this topic Hepatitis B Vaccines Aged Out No long er eligible based on patient's age to complete this topic IPV Vaccines Aged Out No longer eligi ble based on patient's age to complete this topic MMR Vaccines Aged Out No longer eligi ble based on patient's age to complete this topic Meningococcal ACWY Vaccine Aged Out N o longer eligible based on patient's age to complete this topic Meningococcal B Vaccine Aged Out No l onger eligible based on patient's age to complete this topic RSV Immunization Patients Under 20 months Aged Out No longer eligible based on patient's age to complete this topic Varicella Vaccines Aged Out No longer eligible based on patient's age to complete this topic Care Teams Sprinkler Worker Relationship Specialty Start Date End Date Laureen Hare MD [address] [place] [address] PCP - General Internal Medicine 09/01/15
--- OUTSIDE RECORDS SUMMARY | 2024-12-21 12:32 | XMS_ITS | Clinical Summary ---
Author Organization [facility], Address [address] [place] [address] [address] [place] [address] Phone Care Team Providers Care Solar Engineer Name Role Phone Tae Ward MD Primary Care Provider [phone] Allergies No known active allergies Social History Tobacco Use Types Packs/Day Years [...] Health Maintenance Due Date Last Done Comments Pneumococcal Vaccine: 65+ Ye ars (1 of 2 - PCV) 1952 Influenza Vaccine (Season Ended) 2025 Hepatitis B Vaccine Aged Out No longe r eligible based on patient's age to complete this topic Insurance [facility] ONE CARE DUAL SNP ([id number]) Care Teams Solar Engineer Relationship Specialty Start Date End Date Tae Ward MD [address] PCP - General Internal Medicine 03/14/22
== END 2024-12-21 11:16 | disposition home or self-care (01) ==
LOC: HO.HKAS 10:28
PROVIDERS: Visit Provider Internal Medicine Nephrology
DX: N28.1 Cyst of kidney, acquired (principal); N20.0 Calculus of kidney; I15.0 Renovascular hypertension; N18.31 Chronic kidney disease, stage 3a
CPT/HCPCS: 99214

== ENCOUNTER 2024-12-21 10:28 | Outpatient (REF) | payer OTHER, SELFPAY ==
--- OUTSIDE RECORDS SUMMARY | 2024-12-21 13:50 | XMS_ITS | Clinical Summary ---
Author Organization [facility], Address [address] [place] [address] [address] [place] [address] Phone Care Team Providers Care Package Liner Name Role Phone Tae Ward MD Primary Care Provider [phone] Allergies No known active allergies Social History [...] patient's age to complete this topic Insurance [facility] ONE CARE DUAL SNP ([id number]) Care Teams Package Liner Relationship Specialty Start Date End Date Tae Ward MD [address] PCP - General Internal Medicine 03/14/22
--- OUTSIDE RECORDS SUMMARY | 2024-12-21 13:50 | XMS_ITS | Encounter Summary ---
Author Organization [facility] Address [address] [place] [address] Phone Care Team Providers Care Solution Make Up Operator Name Role Phone Tae Ward MD Primary Care Provider [phone] Encounter Details Date Type Department Care Team (Late st Contact Info) Description 03/14/2022 Documentation Only [facility], [address] [place] [address] [place], [place] [address] [place] [address] Social History Tobacco Use Types [...] on filedocumented in this encounter Care Teams Solution Make Up Operator Relationship Specialty Start Date End Date Tae Ward MD [facility] [address] [place], [place] PCP - General Internal Medicine 03/14/22 documented as of this encounter
--- OUTSIDE RECORDS SUMMARY | 2024-12-21 13:50 | XMS_ITS ---
Author Organization [facility] Address [address] [place] [address] Care Team Providers Care Building Construction Foreman Name Role Phone Lionel Lynn PA-C Primary Care Provider Unavail able Nya, Sonny Unavailable [phone] Allergies No Known Allergies REASON FOR VISIT At Risk Footcare, Painful Nail(s) aggrevated by shoes and causing difficulty standing/walking., Ingrown Nail, Skin problem(s) Medications Medication SIG (Take, Route, Frequency, Duration) [...] Are you an other tobacco user? No Vital Signs Height 5ft 9in in 06/30/2024 Weight 169 lbs 06/30/2024 BMI 24.95 kg/m2 06/30/2024 Procedures Procedure Date Ordered Date Performed Result Body Sit e 60612-NSNOAWE NAIL, 6 OR MORE 06/30/2024 N/A 92745-Rrvanmyj Plate 06/30/2024 N/A 81343-RKNC SKIN LESIONS, OVER 4 06/30/2024 N/A Encounters Encounter Location Date Provider Diagnosis [facility] [address] [place] [address] 06/30/2024 Sonny Zarateunier Atherosclerosis of hoonah artery of both lower extremities, with unspecified presence of clinical manifestation I70.203 ; Tinea unguium B35.1 ; Pain in right toe(s) M79.674 ; Pain in left toe(s) M79.675 ; Ingrown nail L60.0 and Xerosis of skin L85.3 Assessments Encounter Date Diagnosis (ICD Code) Assessment Notes Treatment Notes Treatment Clinical Notes Section Notes 06/30/2024 Atherosclerosis of hoonah artery of both lower extremities, with unspecified presence of clinical manifestation (ICD-10 - I70.203) 06/30/2024 Tinea unguium (ICD-10 - B35.1) 06/30/2024 Pain in right toe(s) (ICD-10 - M79.674) 06/30/2024 Pain in left toe(s) (ICD-10 - M79.675) 06/30/2024 Ingrown nail (ICD-10 - L60.0) 06/30/2024 Xerosis of skin (ICD-10 - L85.3) Plan Of Treatment Medication Medication Name Sig Start Date Stop Date Notes Ammonium Lactate 12 % 1 application Exte rnally to affected areas of skin to feet except for between the toes Twice a day for 30 days Pending Test Test Name Order Date 56476-VZSLRNJ NAIL, 6 OR MORE 06/30/2024 39077-Kvvhhdhu Plate 06/30/2024 38201-BOIF SKIN LESIONS, OVER 4 06/30/20 24 Next Appt Details Follow Up: 3 Months, Reason: Procedure Notes * Category Sub-Category Detail Notes Nail Avulsion Procedure A fine sterile e levator was placed between the eponychium, nail fold, and nail plate to separate the structures. A sterile nail splitter, and/or sterile 316 blade, was then used to longitudinally section the nail along its entire length through the eponychium to the area under the nail fold. The offending portion of nail was from the nail bed with a rolling action and then removed with a hemostat. No underlying bone was identified. There was minimal bleeding as hemostasis was achieved through the temporary use of either a digital tourniquet or the aforementioned local with epinephrine. A bacitracin sterile dressing was applied. Local wound aftercare instructions were discussed and dispensed. The patient was informed of both conservative and future surgical procedures to prevent recurrence. Tylenol or Motrin was recommended for pain or discomfort (65718) , CIRCULATION: Pt was advised as to the risk of delayed or nonhealing due to circulation. Pt is to call the office with any questions, concerns, or complications Anesthesia was accomplished TOP ICALLY with Lidocaine Hydrochloride Jelly 2 percent Location Lateral nail border , T5 Debride Nail 6-10 Nail debridement Performance o f this nail treatment by a nonprofessional would put this patients foot and overall health at risk. Therefore, nail debridement was performed extensively to reduce/remove overall nail length, girth, thickness, subungual debris, and necrotic tissue, by manual and/or electrical means through the use of a nail nipper and/or dremel-type steel grinder, to a more viable healthy nail plate or bed tissue 6-10. Silver nitrate used for any petechial bleeding as necessary. Definitive antifungal treatment options have been reviewed and discussed with the patient. The patient chooses, no pharmaceutical tx - 51269 Keratoma Treatment Parring or Cutting o f Benign Hyperkeratotic Lesion(s) (-57) More than 4 Lesions - The Benign hyperkeratotic lesions, as described above were pared, and/or cut utilizing a sterile 15 blade, tissue nippers, and/or dremel - 45383 , Q8 Progress Notes * Ignacio WALLACEDOB:1945 ( 78 yo M)Acc No.[id number]:06/30/2024 Progress Note Patient:?Ignacio Wallace Provider:?Sonny Fay DPM :1945???Age:78 Y???Sex:Male Juan e:06/30/2024 Address:[address] [place] [address], [id number] Pcp:Lionel Lynn PA-C Subjective: * Chief Complaints: * ???At Risk FootcarePainful N ail(s) aggrevated by shoes and causing difficulty standing/walking.Ingrown NailSkin problem(s) * HPI: ???At Risk footcare:?Pt States Last PCP Visit:?Date?03/17/2024 ???Skin problems:?Nature:?dryness , scaling.?Location:?B/L .?Duration:?several days.?Course:?worse.? * ROS:?General/Constitutional:?Nausea?denies.?Vomiting?denies.?Hunger Thirst?denies.?Loss appetite?denies.?Chills?denies.?Fatigue?denies.?Fever?denies.?Night Sweats?denies.?Unexplained weight loss?denies.?Unexplained weight gain?denies.?HEENTM:?Dentures?denies.?Dizziness?denies.?Glasses/contacts?admits.?Retinopathy?de nies.?Blurred/double vision?denies.?TMJ?denies.?Discharge/drainage?denies.?Implants?denies.?Sore throat?denies.?Dental implants?denies.?Hard of hearing ?denies.?Difficulty chewing/swallowing/speaking?admits due to stroke.?Nose bleeds?denies.?Sore mouth?denies.?Respiratory:?On Oxygen?denies.?Pneumonia/pleurisy?denies.?Bronchitis?denies.?Emphysema?denies.?C oughing?denies.?Cough blood?denies.?Shortness of breath?denies.?Wheezing?denies.?Cardiovascular:?Pacemaker?denies.?MVP?denies.?WPW?denies.?CHF?denies.?Heart attack?denies.?Septal defect?denies.?Rapid beat?admits.?Chest pain ?denies.?Atrial Fib.?denies.?Murmur/Palpitations?denies.?Gastrointestinal:?Hemorrhoids?denies.?Stomach/Abdominal pain?denies.?Dark blood stool?denies.?Irritable bowel ?denies.?Constipation?denies.?Diarrhea?denies.?Hematology:?Swelling?denies.?Clots?denies.?Varicose Veins?denies.?Bruising?admits, on anticoagulants.?Bleeding problem?admits, on anticoagulants.?Genitourinary:?Blood urine?denies.?Frequent/Painfu/urination/bladder control?admits.?Kidney stones?denies.?Infection (UTI)?denies.?Nephropathy?denies.?sex trans dis (STD)?denies.?Prostate?denies.?Musculoskeletal:?Hammertoes?admits.?Bunions?denies.?Back Pain?denies.?Muscle Cramps/ Resting?denies.?Muscle cramps / walking?admits.?Generalized aches and pains?denies.?Weakness?denies.?Integ.:?Gonzalez?denies.?Scars?denies.?Corns/calluses?admits.?Ingrown nails?admits.?Painful nails?admits.?Open Sores?denies.?Rashes?denies.?Neurologic:?Difficulty sleeping?denies.?Brain disorder?admits, CVA.?Numbness?denies.?Balance trouble?denies.?Confusion?denies.?Fainting/blackouts?denies.?Tingling?denies.?Tr emors?denies.? * Medical History:? * Surgical History:?No Surgica l History documented. * Hospitalization/Major Diagno stic Procedure:?No Hospitalization History. * Family History:? N/A Pt declined. * Social History:?Tobacco Use:?Tobacco Use/Smoking?Are you a:?nonsmoker ?Additional Findings: Tobacco Non-User?Current non-smoker ?Tobacco use other than smoking?Are you an other tobacco user??No ???Drugs/Alcohol:?Drugs?Have you used drugs other than those for medical reasons in the past 12 months??No ?Alcohol Screen?Did you have a drink containing alcohol in the past year??No ?Points?0 ?Interpretation?Negative ???Miscellaneous:?Caffeine: yes, frequency:, 1-2 cups per day. ?Children: yes, Five. ?Marital status: . ?Occupation: Retired. * Medications:?TakingamLODIPin e Besylate 10 MG Tablet 1 tablet Orally Once a dayLisinopril 40 MG Tablet 1 tablet Orally Once a dayEzetimibe 10 MG Tablet 1 tablet Orally Atorvastatin Calcium 80 MG Tablet 1 tablet Orally Orthopedic Extra Depth Shoes With Custom Heat Molded Multidensity Innersoles 1 Pair shoes with 3 Pair custom heat molded innersoles Wear DailyMedication List reviewed and reconciled with the patientTaking amLODIPine Besylate 10 MG Tablet 1 tablet Orally Once a dayTaking Lisinopril 40 MG Tablet 1 tablet Orally Once a dayTaking Ezetimibe 10 MG Tablet 1 tablet Orally Taking Atorvastatin Calcium 80 MG Tablet 1 tablet Orally Taking Orthopedic Extra Depth Shoes With Custom Heat Molded Multidensity Innersoles 1 Pair shoes with 3 Pair custom heat molded innersoles Wear DailyMedication List reviewed and reconciled with the patient * Allergies:?N.K.D.A.yes[Aller gies Verified] Objective: * Vitals:?Ht: 5ft 9in, Wt: 169 , BMI: 24.95, Shoe size: 9, Wt-k.66 kg. * Examination: ???Vascular: ?DP PULSES(B):?1/4, B/L.?PT PULSES(B):? 0/4, B/L.?CAPILLARY FILL TIME:? delayed, all digits, B/L.?TROPHIC CONDITION-TEXTURE/ELASTICITY/TURGOR/HAIR GROWTH(B):? decreased, with sparse to absent hair growth, B/L.?TEMPERTURE GRADIENT(C):? decreased, cool to cool, proximal to distal, B/L.?PIGMENTATION:?mottled, B/L.?EDEMA(C):?absent, B/L.?CLAUDICATION(C):?denies, B/L.?REST PAIN:?denies, B/L.?VARICOSITIES:?present, moderate, nonpainful, B/L.?Nails: ?NAILS are:? Elongated, overgrown, dystrophic, lytic, greater than 3mm thick, discolored and friable with crumbly malodorous subungual debris, with pain on palpation, TA, T3, T4, T5, T8, T9, remaining nails are elongated, overgrown, dystrophic.?Ingrown Nail: ?INSPECTION:?Reveals nail incurvation, pain on palpation, groove hypertrophy , Lateral nail border , T5.?Dermatologic: ?SKIN FINDINGS:?Skin exam reveals Keratotic lesion(s) located at , SUB MTH (s) , 2 , B/L , SUB MTH (s) , 3 , B/L , SUB MTH (s) , 5 , B/L , Heel(s) , B/L , Skin shows sign(s) of, dryness, scaling, in a stocking fashion, no fissure(s) present, B/L.? Assessment: * Assessment: 1.?Tinea unguium - B35.1?2.? Atherosclerosis of hoonah artery of both lower extremities, with unspecified presence of clinical manifestation - I70.203?3.?Pain in right toe(s) - M79.674?4.?Pain in left toe(s) - M79.675?5.?Ingrown nail - L60.0, Lateral nail border , T5?6.?Xerosis of skin - L85.3, Acute problem, Uncomplicated (3),Rx Management (4)? Plan: * Treatment: 2.?Atherosclerosis of hoonah artery of both lower extremities, with unspecified presence of clinical manifestation?Procedure: 85921-CIUK SKIN LESIONS, OVER 4 3.?Ingrown nail?Procedure: 76795-Kqqkyjux Plate 4.?Xerosis of skin? Start Ammonium Lactate Cream, 12 %, 1 application, Externally to affected areas of skin to feet except for between the toes, Twice a day, 30 days, 140, Refills 2.?? * Procedures:?Debride Nail 6-10:?Nail debridement?Performance of this nail treatment by a nonprofessional would put this patients foot and overall health at risk. Therefore, nail debridement was performed extensively to reduce/remove overall nail length, girth, thickness, subungual debris, and necrotic tissue, by manual and/or electrical means through the use of a nail nipper and/or dremel-type steel grinder, to a more viable healthy nail plate or bed tissue 6-10. Silver nitrate used for any petechial bleeding as necessary. Definitive antifungal treatment options have been reviewed and discussed with the patient. The patient chooses, no pharmaceutical tx - 43207.?Keratoma Treatment:?Parring or Cutting of Benign Hyperkeratotic Lesion(s)?(-57) More than 4 Lesions - The Benign hyperkeratotic lesions, as described above were pared, and/or cut utilizing a sterile 15 blade, tissue nippers, and/or dremel - 61807 , Q8.?Nail Avulsion:?Location?Lateral nail border?,?T5.?Anesthesia?was accomplished TOPICALLY with Lidocaine Hydrochloride Jelly 2 percent.?Procedure?A fine sterile elevator was placed between the eponychium, nail fold, and nail plate to separate the structures. A sterile nail splitter, and/or sterile 316 blade, was then used to longitudinally section the nail along its entire length through the eponychium to the area under the nail fold. The offending portion of nail was from the nail bed with a rolling action and then removed with a hemostat. No underlying bone was identified. There was minimal bleeding as hemostasis was achieved through the temporary use of either a digital tourniquet or the aforementioned local with epinephrine. A bacitracin sterile dressing was applied. Local wound aftercare instructions were discussed and dispensed. The patient was informed of both conservative and future surgical procedures to prevent recurrence. Tylenol or Motrin was recommended for pain or discomfort (57718) , CIRCULATION: Pt was advised as to the risk of delayed or nonhealing due to circulation. Pt is to call the office with any questions, concerns, or complications.? * Procedure Codes:?48467 DEBRI DE NAIL, 6 OR MORE, Modifiers: XS 49621 Avulsion Plate, Modifiers: XS , [id number] TRIM SKIN LESIONS, OVER 4, Modifiers: XS , Q8 * Preventive Medicine:? ??Counseling:?Discussion:?-13: Office or other outpatient visit for the evaluation and management of an established patient, which required a medically appropriate history and/or examination and LOW level of DECISION MAKING for: 1 STABLE ACUTE UNCOMPLICATED PROBLEM, 2 OR MORE MINOR PROBLEMS, OR 1 STABLE CHRONIC PROBLEM, THAT POSE(S) A LOW RISK FOR MORBIDITY/MORTALITY. The visit on the day of the encounter encompassed interpreting the data and educating the patient as to the nature of their condition, treatment options available according to their individual PMH, meds, allergies, and overall health/living conditions, as well as any potential risks or complications that may occur from a failure to adhere to, and participate in, the recommended course of therapy. The discussion included a complete verbal, and/or written explanation of the examination results, any x-rays taken, the proposed diagnosis, and outline of the treatment plan. A schedule for future care needs was also explained. The patient verbalized an understanding of the instructions at this time and agreed to be an active participant in their treatment. If the patient should think of any questions or concerns after the visit, I have encouraged the patient to call the office.?Xerosis:?The patient was counseled on the diagnosis, potential etiologies, and treatment options for their skin condition. We discussed the risks and benefits of each option from performing no treatment, to utilizing OTC topical skin creams/ointments, to utilizing prescription topical creams/ointments, to utilizing customized compounded topical medications and use of nocturnal occlusion with any/all previously detailed therapies. We discussed the advantages and disadvantages of each possible treatment and importance for adherence to all the recommended therapies for optimum success and avoid potential complications such as open sore/infection/possible hospitalization. We discussed the potential effectiveness of each topical preparation as well as each ones possible side effects and/or patient medication interactions. Patient questions re: use, dosage, successful outcomes, and application consistency were reviewed and the patient verbalized that all answers were clearly understood. The patient has decided to apply Rx skin creams to their feet save the interspaces while paying special attention to the heels. Such was sent to their pharmacy at the time of visit.? * Follow Up:?3 Months * Images: * Sign off status: Completed true * Provider:?Sonny Fay DPM Date:?2023 Generated for Brianda crane/Jacinto/Brayan on:?12/21/2024 12:31 PM EDT History and Physical Notes * HPI (History of Present Illness) Category Sub-Category Detail Notes Category Not es Skin problems Nature: dryness , scaling Location: B/L Duration: several days Course: worse At Risk footcare Pt States Last PCP Visit: Date: 4 Examination Category Sub-Category Detail Notes Category Not es Ingrown Nail INSPECTION: Reveals nail inc urvation, pain on palpation, groove hypertrophy , Lateral nail border , T5 Dermatologic SKIN FINDINGS: Skin exam reveal s Keratotic lesion(s) located at , SUB MTH (s) , 2 , B/L , SUB MTH (s) , 3 , B/L , SUB MTH (s) , 5 , B/L , Heel(s) , B/L , Skin shows sign(s) of, dryness, scaling, in a stocking fashion, no fissure(s) present, B/L Vascular DP PULSES (B): 1/4, B/L PT PULSES (B): 0/4, B/L CAPILLARY FILL TIME: delayed, all digits , B/L TEMPERTURE GRADIENT (C): decreased, cool to cool, proximal to distal, B/L TROPHIC CONDITION-TEXTURE/ELASTICITY/TURGOR/HAIR GROWTH (B): decreased, with sparse to absent hair gr owth, B/L EDEMA (C): absent, B/L VARICOSITIES: present, moderate, n onpainful, B/L CLAUDICATION (C): denies, B/L REST PAIN: denies, B/L PIGMENTATION: mottled, B/L Nails NAILS are: Elongated, overg rown, dystrophic, lytic, greater than 3mm thick, discolored and friable with crumbly malodorous subungual debris, with pain on palpation, TA, T3, T4, T5, T8, T9, remaining nails are elongated, overgrown, dystrophic
--- OUTSIDE RECORDS SUMMARY | 2024-12-21 13:50 | XMS_ITS | Clinical Summary ---
Author Organization [employer] Address [address] [place] [address] Care Team Providers Care Hydraulic Rubbish Compactor Mechanic Name Role Phone Laureen Hare MD Primary Care Provider [phone] Encounters Date Type Department Care Team Description 11/25/2024 Telephone [facility] Radiation Oncology [address] [place] [address] Gia Galvan RN from Last [...] age to complete this topic Care Teams Hydraulic Rubbish Compactor Mechanic Relationship Specialty Start Date End Date Laureen Hare MD [address] [place] [id number] PCP - General Internal Medicine 09/01/15
--- OUTSIDE RECORDS SUMMARY | 2024-12-21 13:50 | XMS_ITS | Encounter Summary ---
Author Organization [facility] Address [address] [place] [address] Phone Care Team Providers Care Wallpaper Consultant Name Role Phone Tae Ward MD Primary Care Provider [phone] Encounter Details Date Type Department Care Team (Late st Contact Info) Description 03/14/2022 Documentation Only [facility], [address] [place] [address] [place], [place] [address] [place] [address] Social History Tobacco Use Types [...] on filedocumented in this encounter Care Teams Wallpaper Consultant Relationship Specialty Start Date End Date Tae Ward MD [facility] [address] [place], [place] PCP - General Internal Medicine 03/14/22 documented as of this encounter
--- OUTSIDE RECORDS SUMMARY | 2024-12-21 13:50 | XMS_ITS | Encounter Summary ---
Author Organization [facility] Address [address] [place] [address] Phone Care Team Providers Care Inspector Automatic Typewriter Name Role Phone Tae Ward MD Primary Care Provider [phone] Encounter Details Date Type Department Care Team (Late st Contact Info) Description 03/14/2022 Documentation Only [facility] [place], [address] [place] [address] [place], [place] [address] [place] [address] Social History Tobacco Use Types [...] on filedocumented in this encounter Care Teams Inspector Automatic Typewriter Relationship Specialty Start Date End Date Tae Ward MD [facility] [address] [place], [place] PCP - General Internal Medicine 03/14/22 documented as of this encounter
--- OUTSIDE RECORDS SUMMARY | 2024-12-21 13:50 | XMS_ITS | Encounter Summary ---
Author Organization [facility] Address [address] [place] [address] Phone Care Team Providers Care Sales Representative Metals Name Role Phone Tae Ward MD Primary Care Provider [phone] Encounter Details Date Type Department Care Team (Late st Contact Info) Description 03/14/2022 Documentation Only [facility] [place], [address] [place] [address] [place], [place] [address] [place] [address] Social History Tobacco Use Types [...] on filedocumented in this encounter Care Teams Sales Representative Metals Relationship Specialty Start Date End Date Tae Ward MD [facility] [address] [place], [place] PCP - General Internal Medicine 03/14/22 documented as of this encounter
[2024-12-21 19:07] LABS: Anion Gap 12 (12-20); Blood Urea Nitrogen 29 mg/dL (9-16); Carbon Dioxide 22 mmol/L (22-29); Chloride 111 mmol/L (96-108); Estimated Glomerular Filt Rate 45; Potassium 4.4 mmol/L (3.3-5.1); Sodium 141 mmol/L (135-145)
== END 2024-12-21 10:29 | disposition home or self-care (01) ==
LOC: HO.HKASLDS 10:28
PROVIDERS: Visit Provider Internal Medicine Nephrology
DX: N28.1 Cyst of kidney, acquired (principal); N20.0 Calculus of kidney; I15.0 Renovascular hypertension; N18.31 Chronic kidney disease, stage 3a
CPT/HCPCS: 36415; 80051; 82565; 84520; 99212

== ENCOUNTER 2025-01-27 11:50 | Outpatient (AMB) | payer OTHER, SELFPAY ==
--- NOTE | 2025-01-27 11:54 | HO.NEPHOV ---
Vital Signs 01/27/25 11:56 Height 5 ft 9 in Weight 171 lb BMI 25.2 BP 110/70 Blood Pressure Location Lt brachial Position Sitting Pulse 71 Pulse Source Pulse Oximeter Pulse Oximetry (%) 97 Oxygen Delivery Method Room Air Intake Visit Reasons: 1 MO FU Motel Operator Required: No Accompanied by: Self / Same As Patient Allergies No Known Allergies Allergy (Verified 01/27/25 11:55) HPI Comments Details: Ignacio was seen in follow up for labile hypertension and chronic kidney disease. He has history of ischemic stroke, pre diabetes and CKD stage 3. He has expressive aphasia post CVA. He has history of prostate cancer. He denies having coronary artery disease, congestive heart failure, carotid stenosis, renal artery stenosis or PND. He has no history of hypokalemia, uncontrolled thyroid disorders, hypercalcemia or obstructive sleep apnea. He was accompanied by his friend Stella. He was prescribed labetalol in the past and then later to carvedilol which was stopped due to dizziness and drowsiness. Currently is on amlodipine 10 mg along with lisinopril 40 mg and spironolactone 25 mg. He does not have any chest pain, shortness of breath, proximal nocturnal dyspnea, orthopnea, pedal edema, orthostatic symptoms, hematuria, flank pain, sinusitis, palpitation, syncope, urinary symptoms. He denies taking excessive sodium in the diet as well as nonsteroidal anti-inflammatories. He maintains good hydration. He had a 24 hour BPM which showed 24 hour average of 134/85 mm of Hg. His day time average was 134/86 mm of Hg and night time average of 133/85 mm of Hg. [facility] Medical History (Updated 06/22/24 @ 11:10 by Richard Vila MD) Prostate cancer Pre-diabetes Expressive aphasia Erectile dysfunction Chronic renal failure BPH (benign prostatic hyperplasia) Essential (primary) hypertension Acute ischemic stroke Family History Son Stroke Son Hypertension Social History Alcohol intake: former Patient Tobacco Use Status: Never used Tobacco Review of Systems Const All systems reviewed & are unremarkable except as noted in HPI and below Physical Exam Const General: comfortable and no acute distress Orientation/consciousness: patient oriented x3 HEENT Head: Yes normocephalic Mouth: Normal oral and palatal mucosa present Eyes EOM: EOMs intact bilaterally Neck Neck: Yes supple Resp Auscultation: clear to auscultation bilaterally Cardio Jugular venous distension: no JVD Rate: regular rate GI Palpation (GI): Soft to palpation Auscultation: normal bowel sounds General: Yes no CVA tenderness Back/Spine/Pelvis Back: no CVA tenderness Skin General skin exam: no rashes or lesions noted Neuro General: patient oriented x3 and moves all extremities Extrem General: Yes no pedal edema Results Reviewed Nephrology Results: Sodium 141 mmol/L (135-145) 12/21/24 Potassium 4.4 mmol/L (3.3-5.1) 12/21/24 Chloride 111 mmol/L (96-108) H 12/21/24 Carbon Dioxide 22 mmol/L (22-29) 12/21/24 BUN 29 mg/dL (9-16) H 12/21/24 Creatinine 1.50 mg/dL (0.5-1.4) H 12/21/24 Calcium 9.4 mg/dL (8.4-10.2) 05/13/24 PTH Intact 109.3 pg/mL (8.7-77.1) H 05/13/24 Urine Creatinine 120.92 mg/dL 05/13/24 Protein/Creatinin Ratio 0.15 (<0.2) 05/13/24 Renal US 05/24/24 Assessment & Plan Assessment & Plan (1) CKD stage 3a, GFR 45-59 ml/min: Code(s): N18.31 - Chronic kidney disease, stage 3a Category: Medical (2) Hypertension: Code(s): I10 - Essential (primary) hypertension Category: Medical Qualifiers: Hypertension type: renovascular hypertension Qualified Code(s): I15.0 - Renovascular hypertension (3) Renal calculi: Code(s): N20.0 - Calculus of kidney Category: Medical (4) Renal cyst: Code(s): N28.1 - Cyst of kidney, acquired Category: Medical Plan 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 24 hour ambulatory blood pressure showed BPM which showed 24 hour average of 134/85 mm of Hg. His day time average was 134/86 mm of Hg and night time average of 133/85 mm of Hg. His Doppler of his renal arteries did not show any JORGE L. He has B/L renal cysts His renal functions had currently stable. He is on CHERYL-inhibitor and spironolactone as well as Amlodipine. His urine output is good. He should avoid nonsteroidal anti-inflammatories and minimize sodium in the diet. He should maintain good hydration.He could continue rest of his current medications for now. F/U given Orders: Orders Electrolytes 3 Months I15.0 - Renovascular hypertension, N18.31 - Chronic kidney disease, stage 3a, N20.0 - Calculus of kidney, N28.1 - Cyst of kidney, acquired Creatinine 3 Months I15.0 - Renovascular hypertension, N18.31 - Chronic kidney disease, stage 3a, N20.0 - Calculus of kidney, N28.1 - Cyst of kidney, acquired Blood Urea Nitrogen 3 Months I15.0 - Renovascular hypertension, N18.31 - Chronic kidney disease, stage 3a, N20.0 - Calculus of kidney, N28.1 - Cyst of kidney, acquired Coding Level of Care Code Est Pt Level 4 (62641) Diagnoses CKD stage 3a, GFR 45-59 ml/min N18.31 Renovascular hypertension I15.0 Hypertension type: renovascular hypertension Renal calculi N20.0 Renal cyst N28.1
[2025-01-27 11:56] VITALS: BP 110/70; PULSE 71; O2SAT 97; BMI 25.2
--- OUTSIDE RECORDS SUMMARY | 2025-01-27 12:52 | XMS_ITS ---
Author Organization [facility] Address [address] [place] [address] Care Team Providers Care Humid System Operator Name Role Phone Lionel Lynn PA-C Primary Care Provider Unavail able Sonny Fay Unavailable [phone] REASON FOR VISIT PT left Encounters Encounter [facility] Date [facility] [address] 09/29/[facility] Sonny Fay Plan Of Treatment No Information Progress Notes * Ignacio DIXONDOB:1945 ( 79 yo M)Acc No.[id number]:09/29/2024 Patient:?Ignacio DIXON :1945???Age:78 Y???Sex:Male Address:[address] [place] [address], [facility], [place], [address] * true * Date:? Generated for Printi ng/Faaddisg/eTransmitting on:?01/27/2025 12:52 PM EDT
--- OUTSIDE RECORDS SUMMARY | 2025-01-27 12:52 | XMS_ITS ---
Author Organization [facility] Address [address] [place] [address] Care Team Providers Care Coal Wheeler Name Role Phone Lionel Lynn PA-C Primary Care Provider Unavail Sonny Blackburn Unavailable [phone] Encounters Encounter Location Date [facility] [address] 09/29/2024 Sonny Fay Plan Of Treatment No Information Progress Notes * WALLACEIgnacio NIEVESDOB:1945 ( 79 yo M)Acc No.[id number]:09/29/2024 Progress Note Patient:?Ignacio WALLACE Provider:Smooth Fay DPM :1945???Age:78 Y???Sex:Male Juan e:09/29/2024 Address:[address] [place] [address], [facility] Pcp:Lionel Lynn PA-C Subjective: * Chief Complaints: [...] Fay DPM Date:?2024 Generated for Eli royce/Jacinto/eTransmitting on:?01/27/2025 12:52 PM EDT
--- OUTSIDE RECORDS SUMMARY | 2025-01-27 12:52 | XMS_ITS | Encounter Summary ---
Author Organization [facility] Address [address] [place] [address] Phone Care Team Providers Care Air Quality Specialist Name Role Phone Tae Ward MD Primary Care Provider [phone] Encounter Details Date Type Department Care Team (Late st Contact Info) Description 03/14/2022 Documentation Only [facility] [place], [address] [place] [address] [place], [place] [address] [place] [address] Social History Tobacco Use Types [...] on filedocumented in this encounter Care Teams Air Quality Specialist Relationship Specialty Start Date End Date Tae Ward MD [facility] [address] [place], [place] PCP - General Internal Medicine 03/14/22 documented as of this encounter
--- OUTSIDE RECORDS SUMMARY | 2025-01-27 12:52 | XMS_ITS | Encounter Summary ---
Author Organization [facility] Address [address] [place] [address] Phone Care Team Providers Care Termite Inspector Name Role Phone Tae Ward MD Primary Care Provider [phone] Encounter Details Date Type Department Care Team (Late st Contact Info) Description 03/14/2022 Documentation Only [facility] [place], [address] [place] [address] [place], [place] [address] [place] [address] Social History Tobacco Use Types [...] on filedocumented in this encounter Care Teams Termite Inspector Relationship Specialty Start Date End Date Tae Ward MD [facility] [address] [place], [place] PCP - General Internal Medicine 03/14/22 documented as of this encounter
--- OUTSIDE RECORDS SUMMARY | 2025-01-27 12:52 | XMS_ITS | Patient Health Record ---
Author Organization [facility] Address [address] [facility] [place] [place] [address] Care Team Providers Care Interventional Technologist Name Role Phone Lionel Lynn PA-C Primary Care Provider Unavail able Sonny Fay Unavailable [phone] Allergies No Known Allergies Reason For Referral [...] Problem Acquired hammer toe of right foot (0300201647733161 ) Other hammer toe(s) (acquired), right foot (M20.41) Active confirmed Response to treatment, Improvemen t Problem Acquired hammer toe of left foot (6009177270232067 ) Other hammer toe(s) (acquired), left foot (M20.42) Active confirmed Response to treatment, Improvemen t Problem Atherosclerosis of dry creek arteries of the extremities (497692410225398) Atherosclerosis of dry creek artery of both lower extremities, with unspecified presence of clinical manifestation (I70.203) Active confirmed Vital Signs Height 5ft 9in in 06/30/2024 Weight 169 lbs 06/30/2024 BMI 24.95 kg/m2 06/30/2024 Procedures Procedure Date Ordered Date Performed Result Body Sit e 13117-RWSMHKA NAIL, 6 OR MORE 03/29/2024 N/A 86667-Niutkxuy Plate 03/29/2024 N/A 70443-KNTY SKIN LESIONS, OVER 4 03/29/2024 N/A 37901-RCVKABS NAIL, 6 OR MORE 06/30/2024 N/A 96995-Fyqrgwhb Plate 06/30/2024 N/A 02403-XJXW SKIN LESIONS, OVER 4 06/30/2024 N/A Encounters Encounter Location Date Provider Diagnosis [address] [address] 03/29/2024 Sonny Fay Atherosclerosis of dry creek artery of both lower extremities, with unspecified presence of clinical manifestation I70.203 ; Tinea unguium B35.1 ; Pain in right toe(s) M79.674 ; Pain in left toe(s) M79.675 ; Ingrown nail L60.0 ; Other hammer toe(s) (acquired), right foot M20.41 and Other hammer toe(s) (acquired), left foot M20.[address] [address] 06/30/2024 Sonny Fay Atherosclerosis of dry creek artery of both lower extremities, with unspecified presence of clinical manifestation I70.203 ; Tinea unguium B35.1 ; Pain in right toe(s) M79.674 ; Pain in left toe(s) M79.675 ; Ingrown nail L60.0 and Xerosis of skin L85.[address] [address] 09/29/2024 Sonny Fay Assessments Encounter Date Diagnosis (ICD Code) Assessment Notes Treatment Notes Treatment Clinical Notes Section Notes 03/29/2024 Tinea unguium (ICD-10 - B35.1) 03/29/2024 Atherosclerosis of dry creek artery of both lower extremities, with unspecified presence of clinical manifestation (ICD-10 - I70.203) 06/30/2024 Tinea unguium (ICD-10 - B35.1) 06/30/2024 Atherosclerosis of dry creek artery of both lower extremities, with unspecified [...] Treatment Pending Test Test Name Order Date 51761-ZAJZERW NAIL, 6 OR MORE 10/20/2023 69176-ZANOZBG NAIL, 6 OR MORE 03/29/2024 60504-BOKXEGD NAIL, 6 OR MORE 06/30/2024 43172-Ebiehudg Plate 06/30/2024 91785-Uezqotya Plate 03/29/2024 09348-RWUU SKIN LESIONS, OVER 4 03/29/20 24 75575-TIVO SKIN LESIONS, OVER 4 10/20/19 24 51036-ULTL SKIN LESIONS, OVER 4 06/30/20 24 Insurance Providers Payer Name Payer Address Payer Phone Subscriber Number Group Number Insured Name Patient Relationship to Insured Coverage Start Date Coverage End Date [facility] [employer] Claims [address] [place] [address] [phone] [id number] Ignacio Dixon Self - patient is the insured Medical (General) History Medical History History ICD Code Hypertension Stroke CAD Surgical History Surgery Date(Month/Year)
--- OUTSIDE RECORDS SUMMARY | 2025-01-27 12:52 | XMS_ITS | Encounter Summary ---
Author Organization [facility] Address [address] [place] [address] Phone Care Team Providers Care State Historical Society Director Name Role Phone Tae Ward MD Primary Care Provider [phone] Encounter Details Date Type Department Care Team (Late st Contact Info) Description 03/14/2022 Documentation Only [facility] [place], [address] [place] [address] [place], [place] [address] [place] [address] Social History Tobacco Use Types [...] on filedocumented in this encounter Care Teams State Historical Society Director Relationship Specialty Start Date End Date Tae Ward MD [facility] [address] [place], [place] PCP - General Internal Medicine 03/14/22 documented as of this encounter
--- OUTSIDE RECORDS SUMMARY | 2025-01-27 12:52 | XMS_ITS ---
Author Organization [facility] Address [address] [place] [address] Care Team Providers Care Database Development Project Manager Name Role Phone Lionel Lynn PA-C Primary Care Provider Unavail able Nya, Sonny Unavailable [phone] Allergies No Known Allergies REASON FOR VISIT [...] Ordered Date Performed Result Body Sit e 49594-OXQVUHG NAIL, 6 OR MORE 06/30/2024 N/A 41688-Mjxpflci Plate 06/30/2024 N/A 25978-BJDZ SKIN LESIONS, OVER 4 06/30/2024 N/A Encounters Encounter Location Date Provider Diagnosis [facility] [address] [place] [address] 06/30/2024 Sonny Zarateunier Atherosclerosis of lone pine artery of both lower extremities, with unspecified presence of clinical manifestation I70.203 ; Tinea unguium B35.1 ; Pain in right toe(s) M79.674 ; Pain in left toe(s) M79.675 ; Ingrown nail L60.0 and Xerosis of skin L85.3 Assessments Encounter Date Diagnosis (ICD Code) Assessment Notes Treatment Notes Treatment Clinical Notes Section Notes 06/30/2024 Atherosclerosis of [place] pine artery of both lower extremities, with unspecified [...] days Pending Test Test Name Order Date 91964-IDHDCMT NAIL, 6 OR MORE 06/30/2024 88243-Rkzrhhpc Plate 06/30/2024 46492-RNJB SKIN LESIONS, OVER 4 06/30/20 24 Next [...] Motrin was recommended for pain or discomfort (76401) , CIRCULATION: Pt was advised as to [...] use of a nail nipper and/or dremel-type napper grinder, to a more viable healthy nail plate or bed tissue 6-10. Silver nitrate used for any petechial bleeding as necessary. Definitive antifungal treatment options have been reviewed and discussed with the patient. The patient chooses, no pharmaceutical tx - 18577 Keratoma Treatment Parring or Cutting o f Benign Hyperkeratotic Lesion(s) (-57) More than 4 Lesions - The Benign hyperkeratotic lesions, as described above were pared, and/or cut utilizing a sterile 15 blade, tissue nippers, and/or dremel - 12560 , Q8 Progress Notes * Ignacio WALLACEDOB:1945 ( 78 yo M)Acc No.[id number]:06/30/2024 Progress Note Patient:?Ignacio Wallace Provider:?Sonny Fay DPM :1945???Age:78 Y???Sex:Male Juan e:06/30/2024 Address:[address] [place] [address], [place] Pcp:Lionel Lynn PA-C Subjective: * Chief Complaints: [...] Assessment: 1.?Tinea unguium - B35.1?2.? Atherosclerosis of [place] pine artery of both lower extremities, with unspecified presence of clinical manifestation - I70.203?3.?Pain in right toe(s) - M79.674?4.?Pain in left toe(s) - M79.675?5.?Ingrown nail - L60.0, Lateral nail border , T5?6.?Xerosis of skin - L85.3, Acute problem, Uncomplicated (3),Rx Management (4)? Plan: * Treatment: 2.?Atherosclerosis of [place] artery of both lower extremities, with unspecified presence of clinical manifestation?Procedure: 19489-VVIR SKIN LESIONS, OVER 4 3.?Ingrown nail?Procedure: 19671-Gykqwkrv Plate 4.?Xerosis of skin? Start Ammonium Lactate [...] use of a nail nipper and/or dremel-type napper grinder, to a more viable healthy nail plate or bed tissue 6-10. Silver nitrate used for any petechial bleeding as necessary. Definitive antifungal treatment options have been reviewed and discussed with the patient. The patient chooses, no pharmaceutical tx - 47946.?Keratoma Treatment:?Parring or Cutting of Benign Hyperkeratotic Lesion(s)?(-57) More than 4 Lesions - The Benign hyperkeratotic lesions, as described above were pared, and/or cut utilizing a sterile 15 blade, tissue nippers, and/or dremel - 86166 , Q8.?Nail Avulsion:?Location?Lateral nail border?,?T5.?Anesthesia?was accomplished TOPICALLY [...] Motrin was recommended for pain or discomfort (34757) , CIRCULATION: Pt was advised as to the risk of delayed or nonhealing due to circulation. Pt is to call the office with any questions, concerns, or complications.? * Procedure Codes:?76284 DEBRI DE NAIL, 6 OR MORE, Modifiers: XS 21138 Avulsion Plate, Modifiers: XS , [id number] TRIM SKIN LESIONS, OVER 4, Modifiers: XS [...] Fay DPM Date:?2023 Generated for Brianda crane/Jacinto/Brayan on:?01/27/2025 12:51 PM EDT History and Physical Notes * [...]
--- OUTSIDE RECORDS SUMMARY | 2025-01-27 12:52 | XMS_ITS | Continuity of Care Document ---
Author Organization [facility] Address [address] [place] [address]- Care Team Providers Care Lead Advisor Name Role Phone Lionel Myers DO Primary Care Physician Encounter [facility] Date(s): 12/07/24 - 01/21/25 [facility] [address] [place], [place] [phone] Attending Physician: Alexandrea Rodriguez PharmD Admitting Physician: Alexandrea Rodriguez PharmD Encounter Type: Pre-OutPatient One Time Allergies, Adverse Reactions, Alerts Substance Criticality Severity Reaction Reaction Severity Status lisinopril Sensitivity- dry cough Active carvedilol dizziness/drowsy Ac tive NIFEdipine ER Throat swelling. HERMINIA Active Immunizations Given and Recorded Vaccine Date Status Refusal Reason influenza virus vaccine, inactivated 06/21/20 Tino rded influenza virus vaccine, inactivated 09/23/19 Tino rded influenza virus vaccine, inactivated 08/04/18 Give n influenza virus vaccine, inactivated 05/02/17 Tino rded influenza virus vaccine, inactivated 06/30/15 Give n influenza virus vaccine, inactivated 07/28/14 Give n influenza virus vaccine, inactivated 1 01/06/12 Gi radha pneumococcal 13-valent vaccine 05/02/17 Recorded pneumococcal 13-valent vaccine 03/05/17 Given pneumococcal 23-valent vaccine 2 12/24/11 Given tetanus/diphtheria/pertussis, acel(Tdap) 3 12/24/11 Given 1Admin Note: vis given 04/09/11 2Admin Note: VIS 06-20-09 3Admin Note: VIS 10-08-11 Medications amLODIPine 10 mg oral tablet 1 tablet = 10 mg, By Mouth, Daily, Dr. Kassi Agarwal, # 90 tablet, 0 Refills, Maintenance, :14:00 PM EDT, Tablet, Partial fill upon patient request if the prescription is for a schedule II opioid drug. Start Date: 01/05/25 Status: Ordered Quantity: 90.0 Unit: tablet Repeat number: 1 aspirin 81 mg oral tablet 1 tablet = 81 mg, By Mouth, Daily, with food, # 90 tablet, 3 Refills, Maintenance, 10/18/19 10:44:00 AM EST, Tablet, [facility] #[id number], 173.5, cm, 10/18/19 10:13:00 EST, Height, 79.6, kg, 06/08/18 12:24:00 EDT, Dry Weight Start Date: 10/18/19 Status: Ordered Quantity: 90.0 Unit: tablet Repeat number: 4 atorvastatin 80 mg oral tablet 1 tablet = 80 mg, By Mouth, Daily, # 90 tablet, 1 Refills, Maintenance, 11/12/24 1:40:00 PM EST, Tablet, [facility] #[id number], Please write instructions in Estonian, 173.5, cm, 09/01/24 10:35:00EST, Height Start Date: 11/12/24 Status: Ordered Quantity: 90.0 Unit: tablet Repeat number: 2 ezetimibe 10 mg oral tablet 1 tablet = 10 mg, By Mouth, Daily, # 90 tablet, 1 Refills, Maintenance, 11/12/24 1:41:00 PM EST, Tablet, [facility] #[id number], Partial fill upon patient request if the prescription is for a schedule II opioid drug., 173.5, cm, 09/01/24 10:35:00 EST, Height Start Date: 11/12/24 Status: Ordered Quantity: 90.0 Unit: tablet Repeat number: 2 spironolactone 25 mg oral tablet 25 mg, 1, tablet, By Mouth, Daily, # 90 tablet, Refills 5, Tot. Refills 5, Maintenance, 03/01/24 9:25:00 AM EDT, Route to Pharmacy Electronically, [facility] #[id number], Partial fill upon patient request if the prescription is for a schedule II opioid drug., 173.5, cm, 03/01/24 8:53:00 EDT, Height Start Date: 03/01/24 Status: Ordered Quantity: 90.0 Unit: tablet Repeat number: 6 Problem List Condition Confirmation Course Effective Dates Status Health St atus Informant Benign essential hypertension Confirmed Active BPH (benign prostatic hyperplasia) Confirmed Active Chronic renal failure 1 Confirmed Active Erectile dysfunction Confirmed Active Expressive aphasia Confirmed Active History of stroke Confirmed Active Acute ischemic stroke Confirmed Active Prostate cancer - Elie 7 Confirmed Active *[id number] Utility Bag Assembler Krista Hobbs Confirmed Active Pre-diabetes Confirmed Active Abdominal ultrasound, abnormal 2 Confirmed Active 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 33944, no AAA Social History Social History Type Response Smoking Status Never smoker entered on: 10/22/13 Sex Male Sex Representation Male (finding) Patient Care team information Care Team Personnel Name: Lionel Myers DO Position: [facility] Resident Member Role: PCP Address: [address] [place] [address] Telecom: Care Team Related Persons Name: FRENCH LAURENT Name: ALEJANDRA WALLACE Name: JOSIE WALLACE JR Insurance Providers Guarantor name: JOSIE WALLACE Health Plan Information #: 1 Payer: [employer] Member Number: [id number] Policy Number: NA Group Number: [facility] Health Plan Information #: 2 Payer: [facility] Member Number: NA Policy Number: NA Group Number: NA
--- OUTSIDE RECORDS SUMMARY | 2025-01-27 12:52 | XMS_ITS | Clinical Summary ---
Author Organization [facility], Address [address] [place] [address] [address] [place] [address] Phone Care Team Providers Care Fruit Ii Farmworker Name Role Phone Tae Ward MD Primary Care Provider [phone] Allergies No known active allergies Social History [...] Health Maintenance Due Date Last Done Comments Influenza Vaccine (Season Ended) 2025 Pneumococcal Vaccine: 50+ Years Completed 05/02/2017, 03/05/2017, 12/24/2011 Pneumococcal Vaccine: Peds (0 to 5 Years) and At-Risk Patients (6 to 49 Years) Discontinued 05/02/2017, 03/05/2017, 12/24/2011 Hepatitis B Vaccine Aged Out No longe r eligible based on patient's age to complete this topic Insurance [facility] One Care Dual SNP ([id number]) [place] [id number] Care Teams Fruit Ii Farmworker Relationship Specialty Start Date End Date Tae Ward MD [address] PCP - General Internal Medicine 03/14/22
--- OUTSIDE RECORDS SUMMARY | 2025-01-27 12:52 | XMS_ITS | Clinical Summary ---
Author Organization [employer] [facility] ity Address [address] [place] [address] Care Team Providers Care Multi Spindle Operator Name Role Phone Laureen Hare MD Primary Care Provider Encounters Date Type Department Care Team Description 11/25/2024 Telephone [facility] Radiation Oncology [address] [place] [address] Gia Galvan RN from Last [...] Annual BMP Blood Test 08/22/2022 Influenza Vaccine (Season Ended) 2025 06/21/2020, 09/23/2019, 08/04/2018, Additional history exists Pneumococcal Vaccine: [...] age to complete this topic Care Teams Multi Spindle Operator Relationship Specialty Start Date End Date Laureen Hare MD [address] [place] [address] PCP - General Internal Medicine 09/01/15
--- OUTSIDE RECORDS SUMMARY | 2025-01-27 12:52 | XMS_ITS | Encounter Summary ---
Author Organization [facility] Address [address] [place] [address] Phone Care Team Providers Care Business Librarian Name Role Phone Tae Ward MD Primary Care Provider [phone] Encounter Details Date Type Department Care Team (Late st Contact Info) Description 03/14/2022 Documentation Only [facility], [address] [place] [address] [place], [place] [address] [place] [address] Social History Tobacco Use Types [...] on filedocumented in this encounter Care Teams Business Librarian Relationship Specialty Start Date End Date aTe Ward MD [facility] [address] [place], [place] PCP - General Internal Medicine 03/14/22 documented as of this encounter
== END 2025-01-27 12:05 | disposition home or self-care (01) ==
LOC: HO.HKAS 11:50
PROVIDERS: Visit Provider Internal Medicine Nephrology
DX: N18.31 Chronic kidney disease, stage 3a (principal); I15.0 Renovascular hypertension; N20.0 Calculus of kidney; N28.1 Cyst of kidney, acquired
CPT/HCPCS: 99214

== ENCOUNTER → 2025-01-27 11:50 | Outpatient (BNVA) | payer OTHER, SELFPAY | PROVIDERS: Visit Provider Internal Medicine Nephrology | DX: I15.0 Renovascular hypertension (principal); N18.31 Chronic kidney disease, stage 3a; N20.0 Calculus of kidney; N28.1 Cyst of kidney, acquired | CPT/HCPCS: 99212 ==

== ENCOUNTER 2025-05-03 14:22 | Outpatient (AMB) | payer OTHER, SELFPAY ==
--- OUTSIDE RECORDS SUMMARY | 2024-09-29 10:45 | XMS_ITS ---
Author Organization [facility] Address [address] [place] [address] Care Team Providers Care Elevator Examiner Name Role Phone Lionel Lynn PA-C Primary Care Provider Unavail Sonny Blackburn Unavailable [phone] Encounters Encounter Location Date Provider Diagnosis [address] [address] 09/29/2024 Sonny Fay Plan Of Treatment No Information Progress Notes * MADISON IgnacioDOB:1945 ( 79 yo M)Acc No.[id number]:09/29/2024 Progress Note Patient: Ignacio MARTIN Provider: Yves Fay DPM :1945 A ge:78 Y S ex:Male Date:09/29/2024 Address:[address] [place] [address], [facility], [place], [place], [id number] Pcp:Lionel Lynn PA-C Subjective: * Chief Complaints: * * Medical History: Objective: * Vitals: Assessment: Plan: * Treatment: * Images: * The named appointment provid er may or may not be the originator of this progress note, and it is not deemed complete until electronically signed by the appointment provider. Sign off status: Pending * Provider: Yves Fay DPM Date: 0 09/29/2024 Generated for Printi ng/Faxing/eTransmitting on: 05/03/2025 03:42 PM EDT
--- NOTE | 2025-05-03 14:24 | HO.NEPHOV_ITS ---
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 He has history of ischemic stroke, pre diabetes and CKD stage 3. He has expressive aphasia post CVA. He has history of prostate cancer. He denies having coronary artery disease, congestive heart failure, carotid stenosis, renal artery stenosis or PND. He has no history of hypokalemia, uncontrolled thyroid disorders, hypercalcemia or obstructive sleep apnea. He was accompanied by his friend Stella. He was prescribed labetalol in the past and then later to carvedilol which was stopped due to dizziness and drowsiness. Currently is on amlodipine 10 mg along with lisinopril 40 mg and spironolactone 25 mg. He does not have any chest pain, shortness of breath, proximal nocturnal dyspnea, orthopnea, pedal edema, orthostatic symptoms, hematuria, flank pain, sinusitis, palpitation, syncope, urinary symptoms. He denies taking excessive sodium in the diet as well as nonsteroidal anti-inflammatories. He maintains good hydration. He had a 24 hour BPM which showed 24 hour average of 134/85 mm of Hg. [facility] Medical History (Updated 06/22/24 @ 11:10 by Richard Vila MD) Prostate cancer Pre-diabetes Expressive aphasia Erectile dysfunction Chronic renal failure BPH (benign prostatic hyperplasia) Essential (primary) hypertension Acute ischemic stroke Family History Son Stroke Son Hypertension Social History Alcohol intake: former Patient Tobacco Use Status: Never used Tobacco Review of Systems Const All systems reviewed & are unremarkable except as noted in HPI and below Physical Exam Const General: comfortable and no acute distress Orientation/consciousness: patient oriented x3 HEENT Head: Yes normocephalic Mouth: Normal oral and palatal mucosa present Eyes EOM: EOMs intact bilaterally Neck Neck: Yes supple Resp Auscultation: clear to auscultation bilaterally Cardio Jugular venous distension: no JVD Rate: regular rate GI Palpation (GI): Soft to palpation Auscultation: normal bowel sounds General: Yes no CVA tenderness Back/Spine/Pelvis Back: no CVA tenderness Skin General skin exam: no rashes or lesions noted Neuro General: patient oriented x3 and moves all extremities Extrem General: Yes no pedal edema Results Reviewed Nephrology Results: Sodium, (135-145) 141 mmol/L 12/21/24 Potassium, (3.3-5.1) 4.4 mmol/L 12/21/24 Chloride, (96-108) 111 mmol/L H 12/21/24 Carbon Dioxide, (22-29) 22 mmol/L 12/21/24 BUN, (9-16) 29 mg/dL H 12/21/24 Creatinine, (0.5-1.4) 1.50 mg/dL H 12/21/24 Calcium, (8.4-10.2) 9.4 mg/dL 05/13/24 PTH Intact, (8.7-77.1) 109.3 pg/mL H 05/13/24 Urine Creatinine 120.92 mg/dL 05/13/24 Protein/Creatinin Ratio, (<0.2) 0.15 05/13/24 Renal US 05/24/24 Assessment & Plan Assessment & Plan (1) CKD stage 3a, GFR 45-59 ml/min: Code(s): N18.31 - Chronic kidney disease, stage 3a Category: Medical (2) Renal calculi: Code(s): N20.0 - Calculus of kidney Category: Medical (3) Renal cyst: Code(s): N28.1 - Cyst of kidney, acquired Category: Medical (4) Hypertension: Code(s): I10 - Essential (primary) hypertension Category: Medical Qualifiers: Hypertension type: renovascular hypertension Qualified Code(s): I15.0 - Renovascular hypertension Plan 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 24 hour ambulatory blood pressure showed BPM which showed 24 hour average of 134/85 mm of Hg. His day time average was 134/86 mm of Hg and night time average of 133/85 mm of Hg. His Doppler of his renal arteries did not show any JORGE L. He has B/L renal cysts His renal functions had currently stable. He is on CHERYL-inhibitor and spironolactone as well as Amlodipine. His urine output is good. He should avoid nonsteroidal anti-inflammatories and minimize sodium in the diet. He should maintain good hydration.He could continue rest of his current medications for now. F/U given Orders: Orders Calcium 3 Months I15.0 - Renovascular hypertension, N18.31 - Chronic kidney disease, stage 3a, N20.0 - Calculus of kidney, N28.1 - Cyst of kidney, acquired Blood Urea Nitrogen 3 Months I15.0 - Renovascular hypertension, N18.31 - Chronic kidney disease, stage 3a, N20.0 - Calculus of kidney, N28.1 - Cyst of kidney, acquired Electrolytes 3 Months I15.0 - Renovascular hypertension, N18.31 - Chronic kidney disease, stage 3a, N20.0 - Calculus of kidney, N28.1 - Cyst of kidney, acquired Creatinine 3 Months I15.0 - Renovascular hypertension, N18.31 - Chronic kidney disease, stage 3a, N20.0 - Calculus of kidney, N28.1 - Cyst of kidney, acquired Coding Level of Care Code Est Pt Level 4 (81887) Diagnoses CKD stage 3a, GFR 45-59 ml/min N18.31 Renal calculi N20.0 Renal cyst N28.1 Renovascular hypertension I15.0 Hypertension type: renovascular hypertension
[2025-05-03 14:31] VITALS: BP 140/80; PULSE 72; O2SAT 96; BMI 24.7
--- OUTSIDE RECORDS SUMMARY | 2025-05-03 15:42 | XMS_ITS | Clinical Summary ---
Author Organization [employer] [facility] ity Address [address] [place] [address] Care Team Providers Care Lung Puller Name Role Phone Laureen Hare MD Primary Care Provider Social History Tobacco Use Types Packs/Day Years Used Date Smoking Tobacco: Never Assessed Sex and Gender Information Value Date Recorded Sex Assigned at Not on file Legal Sex Male 10:26 AM EST Gender Identity Not on file Sexual Orientation Not on file Plan of Treatment Health Maintenance Due Date Last Done Comments Zoster Vaccines (1 of 2) 1996 RSV Immunization Adult Patients (1 - 1-dose 75+ series) 2021 DTaP,Tdap,and Td Vaccines (2 - Td or Tdap) 12/23/2021 12/24/2011 Cholesterol Screening (Lipid Panel) 08/13/2022 Falls Risk Assessment 08/13/2022 Hepatitis C Screening 08/13/2022 Social Influencers of Health Screening 08/13/2022 Hypertension/CHF/CAD Annual BMP Blood Test 08/22/2022 COVID-19 Vaccine ( season) 2024 Depression Screening 09/15/2024 Influenza Vaccine (#1) 2025 0, 09/23/2019, 08/04/2018, Additional history exists Pneumococcal [...] age to complete this topic Care Teams Lung Puller Relationship Specialty Start Date End Date Laureen Hare MD [address] [place] [address] PCP - General Internal Medicine 09/01/15
--- OUTSIDE RECORDS SUMMARY | 2025-05-03 15:42 | XMS_ITS | Encounter Summary ---
Author Organization [facility] Address [address] [place] [address] Phone Care Team Providers Care Telephone Directory Deliverer Name Role Phone Tae Ward MD Primary Care Provider [phone] Encounter Details Date Type Department Care Team (Late st Contact Info) Description 03/14/2022 Documentation Only [facility], [address] [place] [address] [place], [place] [address] [place] [address] Social History Tobacco Use Types [...] on filedocumented in this encounter Care Teams Telephone Directory Deliverer Relationship Specialty Start Date End Date Tae Ward MD [facility] [address] [place], [place] PCP - General Internal Medicine 03/14/22 documented as of this encounter
== END 2025-05-03 14:59 | disposition home or self-care (01) ==
LOC: HO.HKAS 14:23
PROVIDERS: PCP Internal Medicine; Visit Provider Internal Medicine Nephrology
DX: N18.31 Chronic kidney disease, stage 3a (principal); N20.0 Calculus of kidney; N28.1 Cyst of kidney, acquired; I15.0 Renovascular hypertension
CPT/HCPCS: 99214

== ENCOUNTER → 2025-05-03 14:22 | Outpatient (BNVA) | payer OTHER, SELFPAY | PROVIDERS: Visit Provider Internal Medicine Nephrology | DX: N18.31 Chronic kidney disease, stage 3a (principal); I15.0 Renovascular hypertension; N20.0 Calculus of kidney; N28.1 Cyst of kidney, acquired | CPT/HCPCS: 99212 ==

== ENCOUNTER 2025-08-17 13:30 | Outpatient (REF) | payer OTHER, SELFPAY ==
--- OUTSIDE RECORDS SUMMARY | 2025-08-17 16:07 | XMS_ITS | Clinical Summary ---
Author Organization [facility] Address [address] [place] [address] Phone Care Team Providers Care Regional Sales Manager Name Role Phone Laureen Hare MD Primary Care Provider [phone] Allergies Active Allergy Reactions Criticality Noted Date Comments Carvedilol Dizziness 05/04/2025 Social History Tobacco Use Types Packs/Day Years Used Date Smoking Tobacco: Never Assessed Sex and Gender Information Value Date Recorded Sex Assigned at Not on file Legal Sex Male 10:26 AM EST Gender Identity Not on file Sexual Orientation Not on file Last Filed Vital Signs Vital Sign Reading Time Taken Comments Blood Pressure 123/82 05/04/2025 10:27 AM EDT Pulse 80 05/04/2025 10:27 AM EDT Temperature 36.7 C (98 F) 05/04/2025 10:27 AM EDT Respiratory Rate 18 05/04/2025 10:27 AM EDT Oxygen Saturation 98% 05/04/2025 10:27 AM EDT Inhaled Oxygen Concentration - - Weight 74.8 kg (165 lb) 05/04/2025 10:29 AM EDT Height 172.7 cm (5' 8 ) 05/04/2025 10:29 AM EDT Body Mass Index 25.09 05/04/2025 10:29 AM EDT Plan of Treatment Health Maintenance Due Date Last Done Comments Zoster Vaccines (1 of 2) 1996 RSV Immunization Adult Patients (1 - 1-dose 75+ series) 2021 DTaP,Tdap,and Td Vaccines (2 - Td or Tdap) 12/23/2021 12/24/2011 Cholesterol Screening (Lipid Panel) 08/13/2022 Falls Risk Assessment 08/13/2022 Hepatitis C Screening 08/13/2022 Medicare Annual Wellness Visit 08/13/2022 Social Influencers of Health Screening 08/13/2022 Hypertension/CHF/CAD Annual BMP Blood Test 08/22/2022 Depression Screening 09/15/2024 COVID-19 Vaccine ( - season) 2025 Influenza Vaccine (#1) 2025 , 09/23/2019, 08/04/2018, Additional history exists Pneumococcal Vaccine: [...] patient's age to complete this topic Insurance [facility] MEDICARE Member Subscriber Plan / Payer (Ef fective 2023-Present) Name:Ignacio Dixon Relation to Subscriber:Self Name:Ignacio Dixon Payer ID:[id number] Group ID:[id number] Type:Not on file Address: [address] [place] [address] Care Teams Regional Sales Manager Relationship Specialty Start Date End Date Laureen Hare MD [address] [place] [address] PCP - General Internal Medicine 09/01/15
--- OUTSIDE RECORDS SUMMARY | 2025-08-17 16:07 | XMS_ITS | Data Portability ---
Author Organization [employer] [facility] [place] [employer] [facility] Address [address] [place] [address] Care Team Providers Care Chief Of Pediatric Urology Name Role Phone [facility] Referring Provider Assessment Encounter Date Assessment Date Assessment LastModified by Organization Details LastModified Time 07/21/2023 07/21/2023 As noted, we were called to see this patient regarding concerns of tachyarrhythmia . Evaluation in the field was performed by my head trimmer colleague, as noted above, I provided real-time [...] rate Body temperature Heart rate Oxygen saturation Systolic And Diastolic Provider Name and Address Organization Details Last Updated DateTime 3 16 /min 97.6 [degF] 72 /min 98 % 155/89 mm[Hg] Not Available [facility] - production 3 17:40:01 Social History None recorded. Functional Status None recorded. Mental Status None recorded. Family History Nothing Reported. Medical History No medical history recorded. Past Encounters Encounter ID Performer Location Encounter Start Date Encounter Closed Date Diagnosis/Indication Diagnosis SNOMED-CT Code Diagnosis ICD10 Code Diagnosis IMO Codes Diagnosis Note [id number] MELISSA PAL MD Main - [facility] [address] [place] [phone] 07/21/2023 17:39:46 07/22/2023 11:19:25 Palpitations 97169676 R00.2 Health Concerns Section Related Observation LastModified by Organization Detai ls LastModified Time None Recorded Concern Status LastModified by Organization Details LastModified Time None Recorded Advance Directives Directive None Recorded Payers Insurance Date Sequence Insurance Name Policy Number Policy Barboza Covered Member ID Barboza Member ID Guarantor Name 02/07/2024 1 [facility] - DOS ON OR AFTER 2022 - DUAL ELIGIBLE - [employer] AND ONE CARE (MEDICARE REPLACEMENT/ADV ANTAGE - HMO) Ignacio Dxion [id number] Ignacio Dixon Notes Date Note Type Note Provider [...] the member should be evaluated by the [facility] team. The member has a PCP f/u visit in the morning at 8:20 am for further evaluation. .................. .................. .................. .................. .................. .................. .................. ............... CRC Nursing Assessment: Comments: CRC RN did not require any additional information to process this visit. .................. .................. .................. .................. .................. .................. .................. ............... Slip Cover Cutter Note From Jay Bridges: Visit initiated by VNA who reported irregular HR 60-130. Pt denies any complaints including CP, SOB, LAURENT, f/n/v/d. Pt is alert, NAD. VSS. Apical pulse is regular, 72 bpm, no murmurs. Afebrile. Neuro exam c/w baseline. Lungs CTA. Benign ABD exam. No HERMINIA. ECG: sinus with occasional PVC s and PAC s . Pt instructed to keep PCP appointment in the morning and to seek emergent medical care for new or worsening sx, which are reviewed with him. .................. .................. .................. .................. .................. .................. .................. ............... Disposition: Fulfilled MELISSA PAL MD [address] [facility],[address] [facility], [place], [address], JACKELYN - FoldeesREMY, VICK 07/21/2023 17:55:17
[2025-08-17 18:59] LABS: Anion Gap 10 (12-20); Blood Urea Nitrogen 36 mg/dL (9-16); Calcium 9.3 mg/dL (8.4-10.2); Carbon Dioxide 29 mmol/L (22-29); Chloride 107 mmol/L (96-108); Estimated Glomerular Filt Rate 41; Potassium 4.5 mmol/L (3.3-5.1); Sodium 141 mmol/L (135-145)
== END 2025-08-17 13:31 | disposition home or self-care (01) ==
LOC: HO.HKASLDS 13:30
PROVIDERS: Visit Provider Internal Medicine Nephrology
DX: N18.31 Chronic kidney disease, stage 3a (principal); N28.1 Cyst of kidney, acquired; N20.0 Calculus of kidney; I15.0 Renovascular hypertension
CPT/HCPCS: 36415; 80051; 82310; 82565; 84520

== ENCOUNTER 2025-08-18 13:34 | Outpatient (AMB) | payer OTHER, SELFPAY ==
--- NOTE | 2025-08-18 13:44 | HO.NEPHOV ---
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 He has history of ischemic stroke, pre diabetes and CKD stage 3. He has expressive aphasia post CVA. He has history of prostate cancer. He denies having coronary artery disease, congestive heart failure, carotid stenosis, renal artery stenosis or PND. He has no history of hypokalemia, uncontrolled thyroid disorders, hypercalcemia or obstructive sleep apnea. He was accompanied by his friend Stella. He was prescribed labetalol in the past and then later to carvedilol which was stopped due to dizziness and drowsiness. Currently is on amlodipine 10 mg along with lisinopril 40 mg and spironolactone 25 mg. He does not have any chest pain, shortness of breath, proximal nocturnal dyspnea, orthopnea, pedal edema, orthostatic symptoms, hematuria, flank pain, sinusitis, palpitation, syncope, urinary symptoms. He denies taking excessive sodium in the diet as well as nonsteroidal anti-inflammatories. He maintains good hydration. He had a 24 hour BPM which showed 24 hour average of 134/85 mm of Hg. [facility] Medical History (Updated 06/22/24 @ 11:10 by Richard Vila MD) Prostate cancer Pre-diabetes Expressive aphasia Erectile dysfunction Chronic renal failure BPH (benign prostatic hyperplasia) Essential (primary) hypertension Acute ischemic stroke Family History Son Stroke Son Hypertension Social History Alcohol intake: former Patient Tobacco Use Status: Never used Tobacco Review of Systems Const All systems reviewed & are unremarkable except as noted in HPI and below Physical Exam Vital Signs: Last Vital Signs Pulse 71 08/18/25 13:46 BP 130/80 08/18/25 13:46 Pulse Ox 96 08/18/25 13:46 Oxygen Delivery Method Room Air 08/18/25 13:46 BMI result Body Mass Index 24.8 Const General: comfortable and no acute distress Orientation/consciousness: patient oriented x3 HEENT Head: Yes normocephalic Mouth: Normal oral and palatal mucosa present Eyes EOM: EOMs intact bilaterally Neck Neck: Yes supple Resp Auscultation: clear to auscultation bilaterally Cardio Jugular venous distension: no JVD Rate: regular rate GI Palpation (GI): Soft to palpation Auscultation: normal bowel sounds General: Yes no CVA tenderness Back/Spine/Pelvis Back: no CVA tenderness Skin General skin exam: no rashes or lesions noted Neuro General: patient oriented x3 and moves all extremities Extrem General: Yes no pedal edema Results Reviewed Nephrology Results: Sodium, (135-145) 141 mmol/L 08/17/25 Potassium, (3.3-5.1) 4.5 mmol/L 08/17/25 Chloride, (96-108) 107 mmol/L 08/17/25 Carbon Dioxide, (22-29) 29 mmol/L 08/17/25 BUN, (9-16) 36 mg/dL H 08/17/25 Creatinine, (0.5-1.4) 1.62 mg/dL H 08/17/25 Calcium, (8.4-10.2) 9.3 mg/dL 08/17/25 Renal US 05/24/24 Assessment & Plan Assessment & Plan (1) Renal cyst: Code(s): N28.1 - Cyst of kidney, acquired Category: Medical (2) Renal calculi: Code(s): N20.0 - Calculus of kidney Category: Medical (3) CKD stage 3a, GFR 45-59 ml/min: Code(s): N18.31 - Chronic kidney disease, stage 3a Category: Medical (4) Hypertension: Code(s): I10 - Essential (primary) hypertension Category: Medical Qualifiers: Hypertension type: renovascular hypertension Qualified Code(s): I15.0 - Renovascular hypertension Plan 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 24 hour ambulatory blood pressure showed BPM which showed 24 hour average of 134/85 mm of Hg. His day time average was 134/86 mm of Hg and night time average of 133/85 mm of Hg. His Doppler of his renal arteries did not show any JORGE L. He has B/L renal cysts His renal functions had currently stable. He is on CHERYL-inhibitor and spironolactone as well as Amlodipine. His urine output is good. He should avoid nonsteroidal anti-inflammatories and minimize sodium in the diet. He should maintain good hydration.He could continue rest of his current medications for now. F/U given Orders: Orders Electrolytes 4 Months I15.0 - Renovascular hypertension, N18.31 - Chronic kidney disease, stage 3a Blood Urea Nitrogen 4 Months I15.0 - Renovascular hypertension, N18.31 - Chronic kidney disease, stage 3a Creatinine 4 Months I15.0 - Renovascular hypertension, N18.31 - Chronic kidney disease, stage 3a Medications: New spironolactone 25 mg PO DAILY 90 tabs 3RF lisinopril 40 mg PO DAILY 90 tabs 3RF Refilled amlodipine 10 mg PO DAILY 90 tabs 3RF Coding Level of Care Code Est Pt Level 4 (52895) Diagnoses Renal cyst N28.1 Renal calculi N20.0 CKD stage 3a, GFR 45-59 ml/min N18.31 Renovascular hypertension I15.0 Hypertension type: renovascular hypertension
[2025-08-18 13:46] VITALS: BP 130/80; PULSE 71; O2SAT 96; BMI 24.8
== END 2025-08-18 14:29 | disposition home or self-care (01) ==
LOC: HO.HKAS 13:35
PROVIDERS: PCP Internal Medicine; Visit Provider Internal Medicine Nephrology
DX: N28.1 Cyst of kidney, acquired (principal); N20.0 Calculus of kidney; N18.31 Chronic kidney disease, stage 3a; I15.0 Renovascular hypertension
CPT/HCPCS: 99214

== ENCOUNTER → 2025-08-18 13:34 | Outpatient (BNVA) | payer OTHER, SELFPAY | PROVIDERS: PCP Internal Medicine; Visit Provider Internal Medicine Nephrology | DX: N28.1 Cyst of kidney, acquired (principal); N20.0 Calculus of kidney; I15.0 Renovascular hypertension; N18.31 Chronic kidney disease, stage 3a; Z79.899 Other long term (current) drug therapy | CPT/HCPCS: 99212 ==